=== PATIENT | male | born 1970 | race Caucasian/White ===

== ENCOUNTER 2016-12-13 22:24 | Inpatient (IN) | payer OTHER ==
[~2016-12-13] VITALS: Ht 172.7 cm; Wt 118.5 kg
--- NOTE | ~2016-12-13 | ST ---
[place], [place] EXERCISE STRESS TEST REPORT NAME: KARISSA JOHNSON UNIT #: [id number] ROOM: [facility] DOCTOR: JESSI ROSA MD BIRTHDATE: [birth year] DOS: LEXISCAN STRESS TEST REPORT INDICATIONS: Chest pain, underlying sarcoidosis. PHARMACOLOGICAL STRESS TEST: The patient was given Lexiscan 0.4 mg over 10 seconds followed by nuclear injection at 40 seconds. Test was completed due to completion. The patient also had 2 minutes of recovery time. 1. PERFORMANCE: Baseline heart rate was 66, blood pressure 130/70. Stress at 2 minutes, heart rate was 90, blood pressure 118/74. 2. EKG RESPONSE: Baseline EKG was normal sinus rhythm. Stress EKG, no changes noted. CLINICAL RESPONSE: No shortness of breath, nausea, lightheadedness or dizziness. INTERPRETATION: 1. Negative Lexiscan stress test. 2. Wait for Cardiolite images for full report. JESSI ROSA MD CM:STRESS:EXERCISE STRESS TEST REPORT [id number] JESSI ROSA MD
--- NOTE | ~2016-12-13 | CON ---
[place], [place] REPORT OF CONSULTATION NAME: KARISSA JOHNSON UNIT #: [id number] ROOM: 519 DOCTOR: YUE HOBSONREBECCA BIRTHDATE: [birth year] DOS: 12/15/2016 HISTORY OF PRESENT ILLNESS: A 46-year-old patient who presented with chief complaint of epigastric abdominal pain, subxiphoid pain, on Advil 3 tablets per day. At the time of admission, a panel of blood work has been done, white blood cell was 12, H and H of 16 and 47. Lactic acid was 2.4. Chest x-ray, left lower lobe atelectasis was noted. Comprehensive metabolic panel, BUN and creatinine 23 and 1.7. Liver function test was essentially unremarkable. Troponin normal. Electrolytes balanced. INR 1.4. Troponin was normal. CT scan of the abdomen and pelvis unremarkable. Ultrasound of the abdomen to reassess hepatic steatosis, no other pathology was noticed. Blood cultures are unremarkable. PAST MEDICAL HISTORY: Associated with gastroesophageal reflux, renal lithiasis, sarcoidosis, vertigo, constipation. PAST SURGICAL HISTORY: Cervical radiculopathy, testicular torsion. SOCIAL HISTORY: Nonsmoker, nonalcohol consumer. FAMILY HISTORY: Noncontributory. ALLERGIES: To no known medications. MEDICATIONS AT HOME: Identified aspirin has been included in addition to Advil. REVIEW OF SYSTEMS: HEENT: Denies double vision, blurred vision. RESPIRATORY: Denies shortness of breath. CARDIOVASCULAR: Denies chest pain. DIGESTIVE SYSTEM: Epigastric distress, abdominal pain. PHYSICAL EXAMINATION: VITAL SIGNS: Stable. HEENT: Head normocephalic, nontraumatic. Mouth and buccal mucosa benign. NECK: Supple, no thyromegaly. CHEST: Symmetric anatomy, equal expansion. No wheeze, no rhonchi. Decreased air entry in general. HEART: Normal sinus rhythm, no gallop, no murmur. ABDOMEN: Soft. No hepato-organomegaly. Subxiphoid tenderness. EXTREMITIES: No cyanosis. No pedal edema. NEUROLOGIC: Alert, oriented to time, place, person. IMPRESSION: Epigastric distress, sarcoidosis. Other adjunctive diagnoses as identified above, user of nonsteroidal anti-inflammatory and aspirin. PLAN AND DISCUSSION: We are going to proceed with panendoscopy. [place], [place] REPORT OF CONSULTATION NAME: KARISSA JOHNSON UNIT #: [id number] ROOM: [facility] DOCTOR: YUE HOBSON,REBECCA BIRTHDATE: [birth year] REBECCA TURNER MD CM:CONSTR:REPORT OF CONSULTATION 1714 12/16/16 0119 interface
--- NOTE | ~2016-12-13 | O ---
[place], [place] OPERATIVE NOTE NAME: KARISSA JOHNSON UNIT #: [id number] ROOM: 519 DOCTOR: REBECCA TURNER MD BIRTHDATE: [birth year] DOS: INDICATIONS: A 46-year-old patient who presented with chief complaint of epigastric distress, dyspepsia and abdominal pain. PROCEDURE: Today's procedure part of investigation is panendoscopy plus biopsy. PREMEDICATION: Versed and Diprivan. SCOPE: Olympus forward-viewing gastroscope Q10 video. REPORT: After putting the patient in the left lateral position and after application of lubricant to the scope, the scope was introduced. Thereafter, under direct visualization, I advanced through the length of the esophagus without difficulty. A small hiatal hernia was noticed. Gastritis was seen. Duodenum expresses multi duodenal ulcers, biopsies obtained. The patient was gradually extubated, tolerated the procedure well. IMPRESSION: Multi duodenal ulcers, gastritis, hiatal hernia. PLAN AND DISCUSSION: Supportive management, Protonix 40 mg daily, avoiding 6 Advils that he is taking daily, supportive follow up otherwise. CT scan have been reviewed. Labs and records have been reviewed. H and H has been stable. Thank you very much indeed. Sincerely, REBECCA TURNER MD CM:OPRECORD:OPERATIVE NOTE 1710 [id number] REBECCA TURNER MD 12/15/16 1933 interface
[2016-12-13 22:24] VITALS: BP 107/74
[~2016-12-13 22:24] MED LIST: A-CILLIN500 MG PO; ALLOPURINOL1 POW; ALLOPURINOL100 MG PO; ALLOPURINOL300 MG PO; AMOXICILLIN250 M1 PO; AMOXICILLIN500 M2 PO; AMOXICILLIN500 MG PO; ANAPROX DS550 MG PO; ASPIRIN81 M1 PO; BACTRIM DS 8001 TA1 PO; CHERATUSSIN A3840 ML PO; CLARITIN10 MG PO; CLEOCIN150 MG PO; COLACE100 MG PO; COLCHICINE0.5 MG PO; COLSALIDE IMPR0.6 MG PO; COMPAZINE10 MG PO; CYCLOBENZAPRINE10 MG PO; FLEXERIL10 MG PO; FLOMAX0.4 MG PO; FLONASE ALLERG9.9 ML NAS; FLUTICASON0.05 MG/AC NAS; GOOD SENSE ASPI81 M1 PO; HYDROCODONE BIT1 T11 PO; IBU800 MG PO; IBUPROFEN600 MG PO; INDOCIN50 MG PO; KEFLEX500 MG PO; LEVOFLOXACIN500 MG PO; MEDROL DOSEPAK4 MG PO; MIRALAX POWDER17 G1 PO; MONTELUKAST SOD10 MG PO; MOTRIN600 MG PO; MOTRIN800 MG; MOTRIN800 MG PO; NAPROSYN500 MG PO; NEURONTIN100 MG PO; NEURONTIN600 MG PO; NKHM; NORCO 325 MG-51 TAB PO; PERCOCET 325 MG1 TA6 PO; PERIDEX 480 ML480 ML PO; PREDNISONE10 MG PO; PREDNISONE20 M1 PO; PRILOSEC20 M1 PO; PRILOSEC20 MG PO; PROAIR HFA0.09 MG/AC INH; ROBAXIN500 MG PO; ROBITUSSIN AC 110 ML PO; ROBITUSSIN DM120 ML PO; SEPTRA DS 800 M1 TAB PO; TESSALON PERLE100 MG PO; TESSALON PERLE200 MG PO; ULTRAM50 MG PO; VICODIN 5/500 505 MG; VICODIN 5/500 505 MG PO; VICODIN ES 7501 TAB PO; VOLTAREN50 M1 PO; ZITHROMAX Z PA250 MG PO; ZOFRAN ODT4 MG PO; ZOFRAN ODT4 MG SL; ZOFRAN4 MG PO; ZYLOPRIM100 MG PO; Zofran4 MG PO; [UNRECOGNIZED DRUG - REMARK]; [UNRECOGNIZED DRUG - REMARK] PO
[2016-12-13] MEDS ORDERED: MIRALAX17 GM PO (22:30)
[2016-12-13 22:56] LABS: BASO # 0.1 10*3/uL (0.0-0.1); BASO % 0.6 % (0.0-1.0); EOS # 0.1 10*3/uL (0.0-0.4); EOS % 0.6 % (1.0-4.0); HEMATOCRIT 47.1 % (42.0-52.0); HEMOGLOBIN 16.4 g/dl (14.0-18.0); IG # 0.1 10*3/uL (0.0-0.1); LYMPH # 2.2 10*3/uL (1.3-4.4); LYMPH % 17.2 % (27.0-41.0); MEAN CELL VOLUME 90.2 fl (80.0-94.0); MEAN CORPUSCULAR HGB 31.4 pg (27.0-31.0); MEAN CORPUSCULAR HGB CONC 34.8 g/dl (33.0-37.0); MEAN PLATELET VOLUME 11.5 fl (9.6-12.3); MONO % 7.5 % (3.0-9.0); NEUT # 9.3 10*3/uL (2.3-7.9); NEUT % 73.6 % (47.0-73.0); PLATELET COUNT AUTOMATED 201 10*3/uL (130-400); RED BLOOD COUNT 5.22 10*6/uL (4.50-5.90); RED CELL DISTRI WIDTH 12.5 % (0-14.5); WHITE BLOOD COUNT 12.7 10*3/uL (4.8-10.8)
[2016-12-13 23:06] LABS: PROTHROMBIN TIME 10.6 SECONDS (9.0-12.4)
[2016-12-13 23:14] LABS: ALBUMIN 4.6 gm/dl (3.1-4.5); ALKALINE PHOSPHATASE 70 U/L (45-117); BILIRUBIN, TOTAL 0.5 mg/dl (0.2-1.0); BUN 23 mg/dl (7-24); CARBON DIOXIDE 23 mmol/L (21-32); CHLORIDE 102 mmol/L (98-107); EST GLOM FILT AFRICAN AMERICAN 51 ml/min; GLUCOSE 101 mg/dL (65-99); MAGNESIUM 2.2 mg/dL (1.5-2.1); POTASSIUM 3.8 mmol/L (3.5-5.1); SGOT/AST 40 IU/L (3-35); SGPT/ALT 74 U/L (12-78); SODIUM 141 mmol/L (136-145); TOTAL PROTEIN 8.6 gm/dL (6.4-8.2)
[2016-12-13 23:15] LABS: TROPONIN I < 0.015 ng/ml (<0.045)
[2016-12-13 23:43] VITALS: BP 121/53
[2016-12-14] VITALS (8 sets, daily range): BP systolic 102–130; BP diastolic 52–84
[2016-12-14 00:53] LABS: LA>2 REFLEX 2 HR DRAW NOW
[2016-12-15] VITALS (9 sets, daily range): BP systolic 102–141; BP diastolic 55–93
[2016-12-15 07:54] LABS: BASO # 0.1 10*3/uL (0.0-0.1); BASO % 0.8 % (0.0-1.0); EOS # 0.3 10*3/uL (0.0-0.4); HEMATOCRIT 42.4 % (42.0-52.0); LYMPH % 30.8 % (27.0-41.0); MEAN CORPUSCULAR HGB 30.7 pg (27.0-31.0); MEAN PLATELET VOLUME 12.1 fl (9.6-12.3); MONO # 0.6 10*3/uL (0.1-1.0); MONO % 9.6 % (3.0-9.0); NEUT # 3.5 10*3/uL (2.3-7.9); NEUT % 54.3 % (47.0-73.0); PLATELET COUNT AUTOMATED 157 10*3/uL (130-400); RED BLOOD COUNT 4.56 10*6/uL (4.50-5.90); RED CELL DISTRI WIDTH 12.8 % (0-14.5); WHITE BLOOD COUNT 6.4 10*3/uL (4.8-10.8)
[2016-12-15 08:05] LABS: HEMOGLOBIN A1c 6.5 % (4.8-5.6)
[2016-12-15 08:22] LABS: BUN 15 mg/dl (7-24); CARBON DIOXIDE 25 mmol/L (21-32); CHLORIDE 109 mmol/L (98-107); CHOLESTEROL 148 mg/dL (<200); EST GLOM FILT AFRICAN AMERICAN > 60 ml/min; FREE T4 0.99 ng/dl (0.76-1.46); GLUCOSE 103 mg/dL (65-99); HDL CHOLESTEROL 30 mg/dl (40-60); LDL CHOLESTEROL 82 mg/dL (9-159); PHOSPHOROUS 2.3 mg/dL (2.5-4.9); POTASSIUM 4.2 mmol/L (3.5-5.1); SODIUM 143 mmol/L (136-145); TRIGLYCERIDES 180 mg/dl (<150); VLDL CHOLESTEROL 36 mg/dL (6-40)
[2016-12-15 08:31] LABS: FOLIC ACID 6.45 ng/mL (>5.38); VITAMIN D, 25-HYDROXY 16.5 ng/mL (30-100)
[2016-12-16] VITALS: BP 103/54
[2016-12-16 08:00] VITALS: BP 103/98
[2016-12-16 12:00] VITALS: BP 143/77
[2016-12-16] MEDS ORDERED: GLUCOPHAGE500 MG PO (13:29)
[2016-12-16] MEDS ORDERED: D-1000 185 MG-11 TAB PO (13:29)
[2016-12-16] MEDS ORDERED: PRILOSEC20 M1 PO (13:29)
== END 2016-12-16 14:00 | disposition home or self-care (01) | DRG 383 ==
LOC: ED 22:24 → EDHOLD 12-14 00:10 → 5E 12-14 00:10
PROVIDERS: Emergency Medicine Emergency Medical Services; Internal Medicine; Student in an Organized Health Care Education/Training Program
PROC: 0DB68ZX Excision of Stomach, Via Natural or Artificial Opening Endoscopic, Diagnostic (ICD-10-PCS; principal; 2016-12-15)
PROC: 0DB98ZX Excision of Duodenum, Via Natural or Artificial Opening Endoscopic, Diagnostic (ICD-10-PCS; principal; 2016-12-15)
PROC: 4A02XM4 Measurement of Cardiac Total Activity, External Approach (ICD-10-PCS; principal; 2016-12-15)
DX: K25.9 Gastric ulcer, unspecified as acute or chronic, without hemorrhage or perforation (principal); N17.0 Acute kidney failure with tubular necrosis; R65.10 Systemic inflammatory response syndrome (SIRS) of non-infectious origin without acute organ dysfunction; J98.11 Atelectasis; K26.9 Duodenal ulcer, unspecified as acute or chronic, without hemorrhage or perforation; K76.0 Fatty (change of) liver, not elsewhere classified; R13.10 Dysphagia, unspecified; K29.70 Gastritis, unspecified, without bleeding; K21.9 Gastro-esophageal reflux disease without esophagitis; G47.33 Obstructive sleep apnea (adult) (pediatric); K59.00 Constipation, unspecified; M54.5 Low back pain; E11.9 Type 2 diabetes mellitus without complications; D86.9 Sarcoidosis, unspecified; M1A.9XX0 Chronic gout, unspecified, without tophus (tophi); E55.9 Vitamin D deficiency, unspecified; M54.12 Radiculopathy, cervical region; K44.9 Diaphragmatic hernia without obstruction or gangrene; Z82.49 Family history of ischemic heart disease and other diseases of the circulatory system; Z83.3 Family history of diabetes mellitus; Z87.442 Personal history of urinary calculi; Z83.79 Family history of other diseases of the digestive system; Z79.82 Long term (current) use of aspirin; Z79.899 Other long term (current) drug therapy

== ENCOUNTER 2016-12-19 01:41 | Emergency (ER) | payer OTHER ==
[~2016-12-19] VITALS: Ht 172.7 cm; Wt 122.5 kg
[~2016-12-19 01:41] MED LIST changes: +D-1000 185 MG-11 TAB PO; +GLUCOPHAGE500 MG PO; +MIRALAX17 GM PO
[2016-12-19 01:53] VITALS: BP 119/75
[2016-12-19] MEDS ORDERED: METFORMIN HCL500 MG PO (01:54)
[2016-12-19] MEDS ORDERED: MITIGARE0.6 MG PO (02:27)
== END 2016-12-19 03:43 | disposition home or self-care (01) ==
LOC: ED 01:41
DX: M10.9 Gout, unspecified (principal); K21.9 Gastro-esophageal reflux disease without esophagitis; E11.9 Type 2 diabetes mellitus without complications; Z79.82 Long term (current) use of aspirin; Z79.899 Other long term (current) drug therapy

== ENCOUNTER 2017-01-13 11:16 | Inpatient (IN) | payer OTHER ==
[~2017-01-13] VITALS: Ht 172.7 cm; Wt 123.4 kg
[~2017-01-13 11:16] MED LIST changes: +METFORMIN HCL500 MG PO; +MITIGARE0.6 MG PO
[2017-01-13 11:23] VITALS: BP 120/58
[2017-01-13] MEDS ORDERED: CELEXA20 MG PO (12:07)
[2017-01-13 12:22] LABS: BASO # 0.1 10*3/uL (0.0-0.1); BASO % 0.7 % (0.0-1.0); EOS # 0.2 10*3/uL (0.0-0.4); EOS % 2.1 % (1.0-4.0); HEMATOCRIT 43.5 % (42.0-52.0); HEMOGLOBIN 14.4 g/dl (14.0-18.0); LYMPH # 2.1 10*3/uL (1.3-4.4); LYMPH % 27.2 % (27.0-41.0); MEAN CELL VOLUME 92.4 fl (80.0-94.0); MEAN CORPUSCULAR HGB 30.6 pg (27.0-31.0); MEAN CORPUSCULAR HGB CONC 33.1 g/dl (33.0-37.0); MEAN PLATELET VOLUME 11.4 fl (9.6-12.3); MONO # 0.7 10*3/uL (0.1-1.0); MONO % 8.8 % (3.0-9.0); NEUT # 4.6 10*3/uL (2.3-7.9); NEUT % 60.8 % (47.0-73.0); PLATELET COUNT AUTOMATED 145 10*3/uL (130-400); RED BLOOD COUNT 4.71 10*6/uL (4.50-5.90); RED CELL DISTRI WIDTH 12.9 % (0-14.5); WHITE BLOOD COUNT 7.6 10*3/uL (4.8-10.8)
[2017-01-13 12:41] LABS: ALKALINE PHOSPHATASE 67 U/L (45-117); BILIRUBIN, TOTAL 0.7 mg/dl (0.2-1.0); BUN 17 mg/dl (7-24); CARBON DIOXIDE 29 mmol/L (21-32); CHLORIDE 102 mmol/L (98-107); EST GLOM FILT AFRICAN AMERICAN > 60 ml/min; GLUCOSE 117 mg/dL (65-99); POTASSIUM 4.3 mmol/L (3.5-5.1); SGOT/AST 39 IU/L (3-35); SGPT/ALT 69 U/L (12-78); SODIUM 138 mmol/L (136-145); TOTAL PROTEIN 7.3 gm/dL (6.4-8.2)
[2017-01-13 15:31] VITALS: BP 126/68
[2017-01-13 16:13] VITALS: BP 137/82
[2017-01-13 20:00] VITALS: BP 130/76
[2017-01-14] VITALS: BP 107/86
[2017-01-14 06:47] LABS: BASO % 0.1 % (0.0-1.0); HEMATOCRIT 42.9 % (42.0-52.0); HEMOGLOBIN 14.5 g/dl (14.0-18.0); IG # 0.1 10*3/uL (0.0-0.1); LYMPH # 1.6 10*3/uL (1.3-4.4); LYMPH % 12.8 % (27.0-41.0); MEAN CELL VOLUME 90.7 fl (80.0-94.0); MEAN CORPUSCULAR HGB 30.7 pg (27.0-31.0); MEAN CORPUSCULAR HGB CONC 33.8 g/dl (33.0-37.0); MEAN PLATELET VOLUME 11.7 fl (9.6-12.3); MONO # 0.1 10*3/uL (0.1-1.0); MONO % 1.1 % (3.0-9.0); NEUT # 10.8 10*3/uL (2.3-7.9); NEUT % 85.5 % (47.0-73.0); PLATELET COUNT AUTOMATED 159 10*3/uL (130-400); RED BLOOD COUNT 4.73 10*6/uL (4.50-5.90); RED CELL DISTRI WIDTH 12.7 % (0-14.5); WHITE BLOOD COUNT 12.6 10*3/uL (4.8-10.8)
[2017-01-14 07:09] LABS: HEMOGLOBIN A1c 6.6 % (4.8-5.6)
[2017-01-14 07:17] LABS: BUN 21 mg/dl (7-24); CARBON DIOXIDE 25 mmol/L (21-32); CHLORIDE 104 mmol/L (98-107); CHOLESTEROL 190 mg/dL (<200); EST GLOM FILT AFRICAN AMERICAN > 60 ml/min; GLUCOSE 192 mg/dL (65-99); HDL CHOLESTEROL 37 mg/dl (40-60); LDL CHOLESTEROL 137 mg/dL (9-159); PHOSPHOROUS 2.4 mg/dL (2.5-4.9); POTASSIUM 4.4 mmol/L (3.5-5.1); SODIUM 137 mmol/L (136-145); TRIGLYCERIDES 81 mg/dl (<150); VLDL CHOLESTEROL 16 mg/dL (6-40)
[2017-01-14 07:21] LABS: VITAMIN D, 25-HYDROXY 30.1 ng/mL (30-100)
[2017-01-14 07:22] LABS: FOLIC ACID 5.01 ng/mL (>5.38)
[2017-01-14 07:25] LABS: FREE T4 0.88 ng/dl (0.76-1.46)
[2017-01-14 07:28] LABS: THYROID STIM HORMONE (HS) 0.418 uIU/ml (0.358-4.75)
[2017-01-14 08:00] VITALS: BP 146/61
[2017-01-14 12:00] VITALS: BP 118/74
[2017-01-14] MEDS ORDERED: PREDNISONE10 MG PO (14:10)
[2017-01-14] MEDS ORDERED: ZITHROMAX500 MG PO (14:10)
[2017-01-14] MEDS ORDERED: PHARMASSURE FO0.4 MG PO (14:11)
== END 2017-01-14 14:51 | disposition home or self-care (01) | DRG 191 ==
LOC: ED 11:16 → 4E 15:00 → EDHOLD 15:00 → 4E 15:35
PROVIDERS: Internal Medicine; Registered Nurse
DX: J44.1 Chronic obstructive pulmonary disease with (acute) exacerbation (principal); Z68.41 Body mass index [BMI] 40.0-44.9, adult; E11.65 Type 2 diabetes mellitus with hyperglycemia; E66.01 Morbid (severe) obesity due to excess calories; D86.9 Sarcoidosis, unspecified; I95.1 Orthostatic hypotension; G47.33 Obstructive sleep apnea (adult) (pediatric); K21.9 Gastro-esophageal reflux disease without esophagitis; E55.9 Vitamin D deficiency, unspecified; T56.0X1D Toxic effect of lead and its compounds, accidental (unintentional), subsequent encounter; M1A.10X0 Lead-induced chronic gout, unspecified site, without tophus (tophi); E53.8 Deficiency of other specified B group vitamins; D72.825 Bandemia; E86.0 Dehydration; M54.9 Dorsalgia, unspecified; E83.39 Other disorders of phosphorus metabolism; D72.829 Elevated white blood cell count, unspecified; Z79.899 Other long term (current) drug therapy; Z82.49 Family history of ischemic heart disease and other diseases of the circulatory system; Z83.3 Family history of diabetes mellitus; Z82.3 Family history of stroke; Z86.73 Personal history of transient ischemic attack (TIA), and cerebral infarction without residual deficits; Z87.442 Personal history of urinary calculi

== ENCOUNTER 2017-02-15 00:37 | Emergency (ER) | payer OTHER ==
[~2017-02-15] VITALS: Ht 172.7 cm; Wt 122.5 kg
[~2017-02-15 00:37] MED LIST changes: +CELEXA20 MG PO; +PHARMASSURE FO0.4 MG PO; +ZITHROMAX500 MG PO
[2017-02-15 01:01] VITALS: BP 149/92
[2017-02-15] MEDS ORDERED: Motrin,Rufen800 MG PO (02:49)
== END 2017-02-15 03:50 | disposition home or self-care (01) ==
LOC: ED 00:37
DX: S80.12XA Contusion of left lower leg, initial encounter (principal); J44.9 Chronic obstructive pulmonary disease, unspecified; E11.9 Type 2 diabetes mellitus without complications; K21.9 Gastro-esophageal reflux disease without esophagitis; M10.9 Gout, unspecified; Z79.82 Long term (current) use of aspirin; Z79.899 Other long term (current) drug therapy; Z86.73 Personal history of transient ischemic attack (TIA), and cerebral infarction without residual deficits; W18.39XA Other fall on same level, initial encounter; Y93.89 Activity, other specified; Y92.89 Other specified places as the place of occurrence of the external cause; Y99.8 Other external cause status

== ENCOUNTER 2017-04-06 05:32 | Emergency (ER) | payer OTHER ==
[~2017-04-06] VITALS: Ht 172.7 cm; Wt 122.5 kg
[~2017-04-06 05:32] MED LIST changes: +Motrin,Rufen800 MG PO
[2017-04-06 05:50] VITALS: BP 158/96
[2017-04-06 06:15] LABS: BILIRUBIN NEGATIVE (NEGATIVE); BLOOD NEGATIVE (NEGATIVE); CLARITY CLEAR (CLEAR); COLOR YELLOW (YELLOW); GLUCOSE NEGATIVE (NEGATIVE); KETONE NEGATIVE (NEGATIVE); LEUKO ESTERASE NEGATIVE (NEGATIVE); NITRITE NEGATIVE (NEGATIVE); UROBILINOGEN 0.2 E.U./dl (0.2-1.0)
[2017-04-06 06:25] LABS: BACTERIA TRACE; MUCOUS 1+
[2017-04-06] MEDS ORDERED: Orphenadrine C100 MG PO (06:46)
[2017-04-06] MEDS ORDERED: KETOROLAC10 MG PO (06:46)
[2017-04-06] MEDS ORDERED: PREDNISONE10 MG PO (06:46)
[2017-04-06] MEDS ORDERED: ZITHROMAX250 MG PO (06:49)
== END 2017-04-06 06:54 | disposition home or self-care (01) ==
LOC: ED 05:32
PROVIDERS: Emergency Medicine Emergency Medical Services
DX: S39.012A Strain of muscle, fascia and tendon of lower back, initial encounter (principal); J44.1 Chronic obstructive pulmonary disease with (acute) exacerbation; K21.9 Gastro-esophageal reflux disease without esophagitis; M10.9 Gout, unspecified; E66.01 Morbid (severe) obesity due to excess calories; G47.33 Obstructive sleep apnea (adult) (pediatric); D86.9 Sarcoidosis, unspecified; E11.65 Type 2 diabetes mellitus with hyperglycemia; Z86.73 Personal history of transient ischemic attack (TIA), and cerebral infarction without residual deficits; Z87.442 Personal history of urinary calculi; Z98.890 Other specified postprocedural states; Z79.82 Long term (current) use of aspirin; Z79.899 Other long term (current) drug therapy; X58.XXXA Exposure to other specified factors, initial encounter; Y93.89 Activity, other specified; Y92.89 Other specified places as the place of occurrence of the external cause; Y99.9 Unspecified external cause status

== ENCOUNTER 2017-04-22 17:14 | Emergency (ER) | payer OTHER ==
[~2017-04-22] VITALS: Ht 172.7 cm; Wt 121.6 kg
[~2017-04-22 17:14] MED LIST changes: +KETOROLAC10 MG PO; +Orphenadrine C100 MG PO; +ZITHROMAX250 MG PO
[2017-04-22 17:26] VITALS: BP 137/101
[2017-04-22] MEDS ORDERED: KEFLEX500 M1 PO (19:11)
== END 2017-04-22 19:13 | disposition home or self-care (01) ==
LOC: ED 17:14
DX: S51.811A Laceration without foreign body of right forearm, initial encounter (principal); E11.9 Type 2 diabetes mellitus without complications; K21.9 Gastro-esophageal reflux disease without esophagitis; W25.XXXA Contact with sharp glass, initial encounter; Y93.9 Activity, unspecified; Y92.9 Unspecified place or not applicable; Y99.9 Unspecified external cause status

== ENCOUNTER 2017-05-04 15:37 | Emergency (ER) | payer OTHER ==
[~2017-05-04] VITALS: Ht 172.7 cm; Wt 119.7 kg
[~2017-05-04 15:37] MED LIST changes: +KEFLEX500 M1 PO
[2017-05-04 15:45] VITALS: BP 154/82
[2017-05-04] MEDS ORDERED: INDOMETHACIN50 MG PO (15:51)
== END 2017-05-04 16:04 | disposition home or self-care (01) ==
LOC: ED 15:37
DX: M10.9 Gout, unspecified (principal); Z79.82 Long term (current) use of aspirin; Z79.84 Long term (current) use of oral hypoglycemic drugs; Z79.899 Other long term (current) drug therapy

== ENCOUNTER → 2017-05-05 | Outpatient (CLI) | payer OTHER ==
[~2017-05-05] MED LIST changes: +INDOMETHACIN50 MG PO
== END | disposition home or self-care (01) ==
LOC: LAB 16:10
DX: M19.072 Primary osteoarthritis, left ankle and foot (principal)

== ENCOUNTER → 2017-07-20 | Outpatient (CLI) | payer OTHER ==
[2017-07-20 16:32] LABS: BASO # 0.1 10*3/uL (0.0-0.1); BASO % 0.6 % (0.0-1.0); EOS # 0.2 10*3/uL (0.0-0.4); EOS % 2.4 % (1.0-4.0); HEMATOCRIT 45.1 % (42.0-52.0); HEMOGLOBIN 15.3 g/dl (14.0-18.0); LYMPH # 2.3 10*3/uL (1.3-4.4); LYMPH % 26.8 % (27.0-41.0); MEAN CELL VOLUME 89.7 fl (80.0-94.0); MEAN CORPUSCULAR HGB 30.4 pg (27.0-31.0); MEAN CORPUSCULAR HGB CONC 33.9 g/dl (33.0-37.0); MEAN PLATELET VOLUME 11.7 fl (9.6-12.3); MONO # 0.7 10*3/uL (0.1-1.0); MONO % 8.2 % (3.0-9.0); NEUT # 5.3 10*3/uL (2.3-7.9); NEUT % 61.4 % (47.0-73.0); PLATELET COUNT AUTOMATED 173 10*3/uL (130-400); RED BLOOD COUNT 5.03 10*6/uL (4.50-5.90); RED CELL DISTRI WIDTH 12.7 % (0-14.5); WHITE BLOOD COUNT 8.6 10*3/uL (4.8-10.8)
[2017-07-20 17:00] LABS: BUN 21 mg/dl (7-24); CHLORIDE 102 mmol/L (98-107); POTASSIUM 4.2 mmol/L (3.5-5.1); SODIUM 139 mmol/L (136-145); URIC ACID 9.6 mg/dL (3.5-7.2)
== END | disposition home or self-care (01) ==
LOC: LAB 15:51
PROVIDERS: Podiatrist Foot & Ankle Surgery
DX: M10.071 Idiopathic gout, right ankle and foot (principal); M10.9 Gout, unspecified

== ENCOUNTER 2017-08-29 15:09 | Emergency (ER) | payer OTHER ==
[~2017-08-29] VITALS: Ht 172.7 cm; Wt 124.7 kg
--- NOTE | ~2017-08-29 | EKG ---
[place], [place] ELECTROCARDIOGRAM REPORT NAME: KARISSA JOHNSON UNIT #: [id number] ROOM: DOCTOR: JESSI ROSA MD BIRTHDATE: [birth year] DOS: 08/29/2017 TIME: 15:24:56 RATE AND RHYTHM: Normal sinus rhythm at 79 beats per minute. AL interval 180 milliseconds, QRS duration 22 milliseconds, corrected QT interval is 421 milliseconds, QRS axis -6. IMPRESSION: Normal sinus rhythm, borderline EKG. Also, there is isolated T-wave inversion in lead 3, which is not significant, also some T-wave flattening noted in V1, V2, V3. Again, there is no old EKG to compare. I would call it a borderline EKG. JESSI ROSA MD CM:EKGRPT:ELECTROCARDIOGRAM REPORT [id number] JESSI ROSA MD
[2017-08-29 16:06] LABS: BASO # 0.1 10*3/uL (0.0-0.1); BASO % 0.8 % (0.0-1.0); EOS # 0.3 10*3/uL (0.0-0.4); EOS % 2.3 % (1.0-4.0); HEMATOCRIT 43.6 % (42.0-52.0); HEMOGLOBIN 14.4 g/dl (14.0-18.0); LYMPH # 3.6 10*3/uL (1.3-4.4); MEAN CELL VOLUME 92.2 fl (80.0-94.0); MEAN CORPUSCULAR HGB 30.4 pg (27.0-31.0); MEAN PLATELET VOLUME 11.4 fl (9.6-12.3); MONO # 1.1 10*3/uL (0.1-1.0); MONO % 10.2 % (3.0-9.0); NEUT % 54.2 % (47.0-73.0); PLATELET COUNT AUTOMATED 154 10*3/uL (130-400); RED BLOOD COUNT 4.73 10*6/uL (4.50-5.90); RED CELL DISTRI WIDTH 13.2 % (0-14.5); WHITE BLOOD COUNT 11.1 10*3/uL (4.8-10.8)
[2017-08-29 16:16] LABS: INTERNATIONAL NORM RATIO 0.9 (2.0-3.5)
[2017-08-29 16:22] LABS: ALBUMIN 3.8 gm/dl (3.1-4.5); ALKALINE PHOSPHATASE 78 U/L (45-117); BUN 15 mg/dl (7-24); CHLORIDE 99 mmol/L (98-107); CREATININE 1.17 mg/dL (0.70-1.30); POTASSIUM 3.8 mmol/L (3.5-5.1); SGOT/AST 32 IU/L (3-35); SGPT/ALT 69 U/L (12-78); SODIUM 137 mmol/L (136-145); TOTAL PROTEIN 7.8 gm/dL (6.4-8.2)
[2017-08-29 16:26] LABS: TROPONIN I < 0.015 ng/ml (<0.045)
[2017-08-29 16:49] LABS: BILIRUBIN NEGATIVE (NEGATIVE); BLOOD NEGATIVE (NEGATIVE); CLARITY SL CLOUDY (CLEAR); COLOR YELLOW (YELLOW); GLUCOSE NEGATIVE (NEGATIVE); KETONE NEGATIVE (NEGATIVE); LEUKO ESTERASE 1+ (NEGATIVE); NITRITE NEGATIVE (NEGATIVE); SPECIFIC GRAVITY 1.015 (1.005-1.030); UROBILINOGEN 0.2 E.U./dl (0.2-1.0)
[2017-08-29 16:54] LABS: BACTERIA 1+; MUCOUS 1+
[2017-08-29 16:57] LABS: WBC 41-50 wbc/hpf (0-5)
[2017-08-29 21:00] VITALS: BP 110/60
== END 2017-08-29 21:40 | disposition short-term general hospital (02) ==
LOC: ED 15:09
PROVIDERS: Physician Assistant
DX: R29.810 Facial weakness (principal); E11.9 Type 2 diabetes mellitus without complications; I10 Essential (primary) hypertension; Z79.899 Other long term (current) drug therapy; Z79.84 Long term (current) use of oral hypoglycemic drugs; Z79.82 Long term (current) use of aspirin

== ENCOUNTER 2017-11-02 11:42 | Emergency (ER) | payer OTHER ==
[~2017-11-02] VITALS: Ht 165.1 cm; Wt 121.6 kg
--- NOTE | ~2017-11-02 | EKG ---
[place], [place] ELECTROCARDIOGRAM REPORT NAME: KARISSA JOHNSON UNIT #: [id number] ROOM: DOCTOR: JIMENA SCHERER MD BIRTHDATE: [birth year] DOS: 11/02/2017 TIME: 1241 hours IMPRESSION: 1. Normal sinus rhythm at 75 beats per minute. 2. The tracing is normal. 3. No previous tracing is available for comparison. JIMENA SCHERER MD CM:EKGRPT:ELECTROCARDIOGRAM REPORT [id number] JIMENA SCHERER MD
[2017-11-02 12:47] LABS: BASO # 0.1 10*3/uL (0.0-0.1); BASO % 0.8 % (0.0-1.0); EOS # 0.4 10*3/uL (0.0-0.4); HEMATOCRIT 44.2 % (42.0-52.0); HEMOGLOBIN 14.6 g/dl (14.0-18.0); LYMPH % 27.8 % (27.0-41.0); MEAN CELL VOLUME 93.1 fl (80.0-94.0); MEAN CORPUSCULAR HGB 30.7 pg (27.0-31.0); MEAN PLATELET VOLUME 11.5 fl (9.6-12.3); MONO # 0.6 10*3/uL (0.1-1.0); MONO % 8.8 % (3.0-9.0); NEUT % 56.3 % (47.0-73.0); PLATELET COUNT AUTOMATED 160 10*3/uL (130-400); RED BLOOD COUNT 4.75 10*6/uL (4.50-5.90); RED CELL DISTRI WIDTH 13.7 % (0-14.5); WHITE BLOOD COUNT 7.2 10*3/uL (4.8-10.8)
[2017-11-02 12:56] LABS: ACT PARTIAL THROMBO TIME 22.1 SECONDS (20.8-31.5)
[2017-11-02 13:05] LABS: ALBUMIN 3.8 gm/dl (3.1-4.5); ALKALINE PHOSPHATASE 78 U/L (45-117); BUN 21 mg/dl (7-24); CHLORIDE 106 mmol/L (98-107); CREATININE 1.24 mg/dL (0.70-1.30); LIPASE 90 U/L (73-393); SGOT/AST 36 IU/L (3-35); SGPT/ALT 54 U/L (12-78); SODIUM 139 mmol/L (136-145); TOTAL PROTEIN 7.6 gm/dL (6.4-8.2)
[2017-11-02 13:08] LABS: TROPONIN I < 0.015 ng/ml (<0.045)
[2017-11-02 15:50] VITALS: BP 115/68
[2017-11-02] MEDS ORDERED: IBUPROFEN600 MG PO (16:28)
== END 2017-11-02 16:55 | disposition home or self-care (01) ==
LOC: ED 11:42
PROVIDERS: Physician Assistant
DX: M26.602 Left temporomandibular joint disorder, unspecified (principal); Z79.82 Long term (current) use of aspirin; Z79.899 Other long term (current) drug therapy

== ENCOUNTER 2017-11-22 17:01 | Emergency (ER) | payer OTHER ==
[~2017-11-22] VITALS: Wt 120.2 kg
[2017-11-22 18:50] VITALS: BP 122/78
== END 2017-11-22 19:00 | disposition home or self-care (01) ==
LOC: ED 17:01
DX: S81.812A Laceration without foreign body, left lower leg, initial encounter (principal); J44.1 Chronic obstructive pulmonary disease with (acute) exacerbation; E11.65 Type 2 diabetes mellitus with hyperglycemia; E66.01 Morbid (severe) obesity due to excess calories; K21.9 Gastro-esophageal reflux disease without esophagitis; Z79.82 Long term (current) use of aspirin; Z87.442 Personal history of urinary calculi; W25.XXXA Contact with sharp glass, initial encounter; Y93.01 Activity, walking, marching and hiking; Y92.89 Other specified places as the place of occurrence of the external cause; Y99.8 Other external cause status

== ENCOUNTER 2017-11-27 23:49 | Emergency (ER) | payer OTHER ==
[~2017-11-27] VITALS: Ht 167.6 cm; Wt 106.6 kg
[2017-11-27 23:50] VITALS: BP 133/86
[2017-11-28] MEDS ORDERED: SEPTDS PO (00:16)
[2017-11-28] MEDS ORDERED: VIBRAMYCIN100 MG PO (00:16)
== END 2017-11-28 00:23 | disposition home or self-care (01) ==
LOC: ED 23:49
DX: S81.812D Laceration without foreign body, left lower leg, subsequent encounter (principal); L08.9 Local infection of the skin and subcutaneous tissue, unspecified; K21.9 Gastro-esophageal reflux disease without esophagitis; M10.9 Gout, unspecified; E11.65 Type 2 diabetes mellitus with hyperglycemia; G47.33 Obstructive sleep apnea (adult) (pediatric); Z87.442 Personal history of urinary calculi; Z86.73 Personal history of transient ischemic attack (TIA), and cerebral infarction without residual deficits; Z98.890 Other specified postprocedural states; Z79.899 Other long term (current) drug therapy; Z79.82 Long term (current) use of aspirin; X58.XXXD Exposure to other specified factors, subsequent encounter

== ENCOUNTER 2017-12-13 13:59 | Emergency (ER) | payer OTHER ==
[~2017-12-13] VITALS: Ht 172.7 cm; Wt 124.7 kg
[~2017-12-13 13:59] MED LIST changes: +SEPTDS PO; +VIBRAMYCIN100 MG PO
[2017-12-13 15:19] LABS: BASO % 0.5 % (0.0-1.0); EOS # 0.2 10*3/uL (0.0-0.4); EOS % 3.5 % (1.0-4.0); HEMATOCRIT 43.3 % (42.0-52.0); LYMPH % 34.5 % (27.0-41.0); MEAN CELL VOLUME 95.8 fl (80.0-94.0); MEAN CORPUSCULAR HGB CONC 32.3 g/dl (33.0-37.0); MEAN PLATELET VOLUME 11.5 fl (9.6-12.3); MONO # 0.5 10*3/uL (0.1-1.0); MONO % 8.5 % (3.0-9.0); NEUT % 52.5 % (47.0-73.0); PLATELET COUNT AUTOMATED 116 10*3/uL (130-400); RED BLOOD COUNT 4.52 10*6/uL (4.50-5.90); RED CELL DISTRI WIDTH 13.9 % (0-14.5); WHITE BLOOD COUNT 5.8 10*3/uL (4.8-10.8)
[2017-12-13 15:19] LABS: BILIRUBIN NEGATIVE (NEGATIVE); BLOOD NEGATIVE (NEGATIVE); CLARITY CLEAR (CLEAR); COLOR YELLOW (YELLOW); GLUCOSE NEGATIVE (NEGATIVE); KETONE NEGATIVE (NEGATIVE); LEUKO ESTERASE NEGATIVE (NEGATIVE); NITRITE NEGATIVE (NEGATIVE); PH 5.5 (5.0-9.0); SPECIFIC GRAVITY 1.015 (1.005-1.030); UROBILINOGEN 0.2 E.U./dl (0.2-1.0)
[2017-12-13 15:36] LABS: ALBUMIN 3.5 gm/dl (3.1-4.5); ALKALINE PHOSPHATASE 61 U/L (45-117); BUN 14 mg/dl (7-24); CHLORIDE 107 mmol/L (98-107); CREATININE 1.18 mg/dL (0.70-1.30); LIPASE 75 U/L (73-393); POTASSIUM 3.9 mmol/L (3.5-5.1); SGOT/AST 28 IU/L (3-35); SGPT/ALT 61 U/L (12-78); SODIUM 140 mmol/L (136-145); TOTAL PROTEIN 6.8 gm/dL (6.4-8.2)
[2017-12-13 15:39] LABS: BACTERIA TRACE; EPITHELIAL CELLS 0-2; RBC 0-2 rbc/hpf (0-2)
[2017-12-13 17:22] VITALS: BP 122/78
== END 2017-12-13 18:28 | disposition home or self-care (01) ==
LOC: ED 13:59
PROVIDERS: Nurse Practitioner Family
DX: K59.00 Constipation, unspecified (principal); R10.12 Left upper quadrant pain; K21.9 Gastro-esophageal reflux disease without esophagitis; M10.9 Gout, unspecified; E66.01 Morbid (severe) obesity due to excess calories; G47.33 Obstructive sleep apnea (adult) (pediatric); E11.65 Type 2 diabetes mellitus with hyperglycemia; Z86.73 Personal history of transient ischemic attack (TIA), and cerebral infarction without residual deficits; Z79.82 Long term (current) use of aspirin; Z87.442 Personal history of urinary calculi; Z98.890 Other specified postprocedural states; Z79.899 Other long term (current) drug therapy

== ENCOUNTER 2018-02-09 19:54 | Emergency (ER) | payer OTHER ==
[~2018-02-09] VITALS: Wt 81.6 kg
[2018-02-09 19:54] VITALS: BP 144/83
[2018-02-09] MEDS ORDERED: CEPHALEXIN500 M1 PO (21:38)
== END 2018-02-09 23:33 | disposition home or self-care (01) ==
LOC: ED 19:54
DX: S91.011A Laceration without foreign body, right ankle, initial encounter (principal); F17.200 Nicotine dependence, unspecified, uncomplicated; Z98.890 Other specified postprocedural states; Z79.899 Other long term (current) drug therapy; Z79.82 Long term (current) use of aspirin; W22.03XA Walked into furniture, initial encounter; Y93.89 Activity, other specified; Y92.89 Other specified places as the place of occurrence of the external cause; Y99.9 Unspecified external cause status

== ENCOUNTER → 2018-03-10 | Outpatient (CLI) | payer OTHER ==
[~2018-03-10] MED LIST changes: +CEPHALEXIN500 M1 PO; +CYCLOBENZAPRINE5 M3 PO; +PERCOCET 5-3251 EACH PO; +PREDNISONE50 MG PO; +PROZAC40 M1 PO
== END | disposition home or self-care (01) ==
LOC: RAD 11:24
DX: M25.571 Pain in right ankle and joints of right foot (principal)

== ENCOUNTER 2018-04-21 15:29 | Emergency (ER) | payer OTHER ==
[~2018-04-21] VITALS: Ht 172.7 cm; Wt 111.6 kg
[~2018-04-21 15:29] MED LIST changes: -CYCLOBENZAPRINE5 M3 PO; -PROZAC40 M1 PO
[2018-04-21] MEDS ORDERED: PROZAC40 M1 PO (15:32)
[2018-04-21 16:32] LABS: BASO # 0.1 10*3/uL (0.0-0.1); BASO % 0.6 % (0.0-1.0); EOS # 0.2 10*3/uL (0.0-0.4); EOS % 2.2 % (1.0-4.0); HEMATOCRIT 42.1 % (42.0-52.0); HEMOGLOBIN 13.8 g/dl (14.0-18.0); LYMPH # 2.1 10*3/uL (1.3-4.4); LYMPH % 24.7 % (27.0-41.0); MEAN CELL VOLUME 94.2 fl (80.0-94.0); MEAN CORPUSCULAR HGB 30.9 pg (27.0-31.0); MEAN CORPUSCULAR HGB CONC 32.8 g/dl (33.0-37.0); MEAN PLATELET VOLUME 10.8 fl (9.6-12.3); MONO # 0.7 10*3/uL (0.1-1.0); MONO % 7.8 % (3.0-9.0); NEUT # 5.4 10*3/uL (2.3-7.9); NEUT % 64.2 % (47.0-73.0); PLATELET COUNT AUTOMATED 183 10*3/uL (130-400); RED BLOOD COUNT 4.47 10*6/uL (4.50-5.90); WHITE BLOOD COUNT 8.5 10*3/uL (4.8-10.8)
[2018-04-21 16:51] LABS: ALBUMIN 3.5 gm/dl (3.1-4.5); ALKALINE PHOSPHATASE 63 U/L (45-117); BUN 22 mg/dl (7-24); CHLORIDE 105 mmol/L (98-107); CREATININE 1.13 mg/dL (0.70-1.30); LIPASE 130 U/L (73-393); POTASSIUM 4.2 mmol/L (3.5-5.1); SGOT/AST 19 IU/L (3-35); SGPT/ALT 29 U/L (12-78); SODIUM 139 mmol/L (136-145); TOTAL PROTEIN 6.9 gm/dL (6.4-8.2)
[2018-04-21 17:10] VITALS: BP 126/78
[2018-04-21] MEDS ORDERED: ZOFRAN ODT4 MG SL (17:48)
== END 2018-04-21 17:53 | disposition home or self-care (01) ==
LOC: ED 15:29
PROVIDERS: Physician Assistant
DX: K52.9 Noninfective gastroenteritis and colitis, unspecified (principal); Z79.82 Long term (current) use of aspirin; Z79.899 Other long term (current) drug therapy

== ENCOUNTER 2018-04-28 19:08 | Emergency (ER) | payer OTHER ==
[~2018-04-28] VITALS: Ht 172.7 cm; Wt 115.7 kg
[~2018-04-28 19:08] MED LIST changes: +PROZAC40 M1 PO
[2018-04-28] MEDS ORDERED: ANAPROX DS550 MG PO (20:46)
[2018-04-28] MEDS ORDERED: CYCLOBENZAPRINE5 M3 PO (20:46)
[2018-04-28 20:58] VITALS: BP 105/77
== END 2018-04-28 21:00 | disposition home or self-care (01) ==
LOC: ED 19:08
DX: S16.1XXA Strain of muscle, fascia and tendon at neck level, initial encounter (principal); J44.9 Chronic obstructive pulmonary disease, unspecified; E11.9 Type 2 diabetes mellitus without complications; K21.9 Gastro-esophageal reflux disease without esophagitis; E66.01 Morbid (severe) obesity due to excess calories; Z79.899 Other long term (current) drug therapy; Z79.82 Long term (current) use of aspirin; Z79.84 Long term (current) use of oral hypoglycemic drugs; X50.0XXA Overexertion from strenuous movement or load, initial encounter; Y93.89 Activity, other specified; Y92.89 Other specified places as the place of occurrence of the external cause; Y99.8 Other external cause status

== ENCOUNTER 2018-06-03 12:29 | Emergency (ER) | payer OTHER ==
[~2018-06-03] VITALS: Ht 172.7 cm; Wt 90.7 kg
[~2018-06-03 12:29] MED LIST changes: +CYCLOBENZAPRINE5 M3 PO
[2018-06-03 12:30] VITALS: BP 123/72
[2018-06-03 13:02] LABS: BASO % 0.7 % (0.0-1.0); EOS # 0.1 10*3/uL (0.0-0.4); EOS % 2.4 % (1.0-4.0); HEMATOCRIT 45.5 % (42.0-52.0); HEMOGLOBIN 15.3 g/dl (14.0-18.0); LYMPH # 1.8 10*3/uL (1.3-4.4); LYMPH % 32.8 % (27.0-41.0); MEAN CELL VOLUME 92.3 fl (80.0-94.0); MEAN CORPUSCULAR HGB CONC 33.6 g/dl (33.0-37.0); MEAN PLATELET VOLUME 11.5 fl (9.6-12.3); MONO # 0.7 10*3/uL (0.1-1.0); MONO % 12.6 % (3.0-9.0); NEUT # 2.8 10*3/uL (2.3-7.9); NEUT % 51.1 % (47.0-73.0); PLATELET COUNT AUTOMATED 155 10*3/uL (130-400); RED BLOOD COUNT 4.93 10*6/uL (4.50-5.90); RED CELL DISTRI WIDTH 13.5 % (0-14.5); WHITE BLOOD COUNT 5.4 10*3/uL (4.8-10.8)
[2018-06-03 13:19] LABS: ALBUMIN 3.8 gm/dl (3.1-4.5); ALKALINE PHOSPHATASE 65 U/L (45-117); BUN 20 mg/dl (7-24); CHLORIDE 104 mmol/L (98-107); CREATININE 1.18 mg/dL (0.70-1.30); SGOT/AST 18 IU/L (3-35); SGPT/ALT 31 U/L (12-78); SODIUM 139 mmol/L (136-145); TOTAL PROTEIN 7.9 gm/dL (6.4-8.2)
== END 2018-06-03 13:35 | disposition home or self-care (01) ==
LOC: ED 12:29
PROVIDERS: Nurse Practitioner Family
DX: J20.9 Acute bronchitis, unspecified (principal); R03.0 Elevated blood-pressure reading, without diagnosis of hypertension; J44.9 Chronic obstructive pulmonary disease, unspecified; K21.9 Gastro-esophageal reflux disease without esophagitis; E11.9 Type 2 diabetes mellitus without complications; E66.1 Drug-induced obesity; M10.9 Gout, unspecified; Z79.899 Other long term (current) drug therapy; Z86.718 Personal history of other venous thrombosis and embolism; Z79.82 Long term (current) use of aspirin

== ENCOUNTER → 2018-09-15 | Outpatient (CLI) | payer OTHER | END | disposition home or self-care (01) | LOC: WOUNDCARE 03:10 | DX: S61.211A Laceration without foreign body of left index finger without damage to nail, initial encounter (principal); E11.9 Type 2 diabetes mellitus without complications; K21.9 Gastro-esophageal reflux disease without esophagitis; M10.9 Gout, unspecified; G47.33 Obstructive sleep apnea (adult) (pediatric); R91.1 Solitary pulmonary nodule; Z86.73 Personal history of transient ischemic attack (TIA), and cerebral infarction without residual deficits; X58.XXXA Exposure to other specified factors, initial encounter; Y93.89 Activity, other specified; Y92.89 Other specified places as the place of occurrence of the external cause; Y99.8 Other external cause status ==

== ENCOUNTER 2018-10-28 00:31 | Emergency (ER) | payer OTHER ==
[2018-10-28 00:32] VITALS: BP 132/76
[2018-10-28 01:11] LABS: BASO # 0.1 10*3/uL (0.0-0.1); BASO % 0.8 % (0.0-1.0); EOS # 0.3 10*3/uL (0.0-0.4); EOS % 3.3 % (1.0-4.0); HEMATOCRIT 46.4 % (42.0-52.0); HEMOGLOBIN 15.5 g/dl (14.0-18.0); LYMPH # 2.4 10*3/uL (1.3-4.4); LYMPH % 30.3 % (27.0-41.0); MEAN CELL VOLUME 92.4 fl (80.0-94.0); MEAN CORPUSCULAR HGB 30.9 pg (27.0-31.0); MEAN CORPUSCULAR HGB CONC 33.4 g/dl (33.0-37.0); MEAN PLATELET VOLUME 11.3 fl (9.6-12.3); MONO # 0.7 10*3/uL (0.1-1.0); MONO % 9.5 % (3.0-9.0); NEUT # 4.4 10*3/uL (2.3-7.9); NEUT % 55.7 % (47.0-73.0); PLATELET COUNT AUTOMATED 170 10*3/uL (130-400); RED BLOOD COUNT 5.02 10*6/uL (4.50-5.90); RED CELL DISTRI WIDTH 13.2 % (0-14.5); WHITE BLOOD COUNT 7.8 10*3/uL (4.8-10.8)
[2018-10-28 01:23] LABS: BILIRUBIN NEGATIVE (NEGATIVE); BLOOD NEGATIVE (NEGATIVE); CLARITY CLEAR (CLEAR); COLOR YELLOW (YELLOW); GLUCOSE NEGATIVE (NEGATIVE); KETONE NEGATIVE (NEGATIVE); LEUKO ESTERASE NEGATIVE (NEGATIVE); NITRITE NEGATIVE (NEGATIVE); PH 5.5 (5.0-9.0); UROBILINOGEN 0.2 E.U./dl (0.2-1.0)
[2018-10-28 01:28] LABS: ALKALINE PHOSPHATASE 67 U/L (45-117); BUN 17 mg/dl (7-24); CHLORIDE 105 mmol/L (98-107); CREATININE 1.25 mg/dL (0.70-1.30); POTASSIUM 3.8 mmol/L (3.5-5.1); SGOT/AST 20 IU/L (3-35); SGPT/ALT 42 U/L (12-78); SODIUM 140 mmol/L (136-145); TOTAL PROTEIN 7.7 gm/dL (6.4-8.2)
[2018-10-28 01:48] LABS: EPITHELIAL CELLS 0-5; WBC 0-2 wbc/hpf (0-5)
== END 2018-10-28 03:36 | disposition home or self-care (01) ==
LOC: ED 00:31
PROVIDERS: Nurse Practitioner Family
DX: N20.0 Calculus of kidney (principal); R10.32 Left lower quadrant pain; D86.89 Sarcoidosis of other sites; E11.9 Type 2 diabetes mellitus without complications; Z98.890 Other specified postprocedural states; Z79.899 Other long term (current) drug therapy; Z79.82 Long term (current) use of aspirin

== ENCOUNTER 2019-04-29 08:40 | Emergency (ER) | payer OTHER ==
[~2019-04-29] VITALS: Ht 172.7 cm; Wt 120.2 kg
[2019-04-29 08:42] VITALS: BP 130/80
[2019-04-29] MEDS ORDERED: CYCLOBENZAPRINE10 MG PO (09:24)
[2019-04-29] MEDS ORDERED: NORCO 5-325 TA1 EACH PO (09:24)
[2019-04-29] MEDS ORDERED: PREDNISONE50 MG PO (09:24)
== END 2019-04-29 09:36 | disposition home or self-care (01) ==
LOC: ED 08:40
DX: M54.31 Sciatica, right side (principal); M79.604 Pain in right leg; R20.0 Anesthesia of skin; E66.01 Morbid (severe) obesity due to excess calories; M10.9 Gout, unspecified; K21.9 Gastro-esophageal reflux disease without esophagitis; E11.9 Type 2 diabetes mellitus without complications; Z79.899 Other long term (current) drug therapy; Z79.82 Long term (current) use of aspirin; Z86.718 Personal history of other venous thrombosis and embolism

== ENCOUNTER 2019-05-15 15:30 | Emergency (ER) | payer OTHER ==
[~2019-05-15] VITALS: Ht 172.7 cm; Wt 120.2 kg
[~2019-05-15 15:30] MED LIST changes: +NORCO 5-325 TA1 EACH PO
[2019-05-15 16:24] LABS: BASO # 0.1 10*3/uL (0.0-0.1); BASO % 0.8 % (0.0-1.0); EOS # 0.2 10*3/uL (0.0-0.4); EOS % 2.3 % (1.0-4.0); HEMATOCRIT 44.1 % (42.0-52.0); HEMOGLOBIN 14.6 g/dl (14.0-18.0); LYMPH # 2.3 10*3/uL (1.3-4.4); LYMPH % 27.8 % (27.0-41.0); MEAN CELL VOLUME 93.2 fl (80.0-94.0); MEAN CORPUSCULAR HGB 30.9 pg (27.0-31.0); MEAN CORPUSCULAR HGB CONC 33.1 g/dl (33.0-37.0); MEAN PLATELET VOLUME 11.7 fl (9.6-12.3); MONO # 0.8 10*3/uL (0.1-1.0); MONO % 9.5 % (3.0-9.0); NEUT # 4.9 10*3/uL (2.3-7.9); NEUT % 59.4 % (47.0-73.0); PLATELET COUNT AUTOMATED 154 10*3/uL (130-400); RED BLOOD COUNT 4.73 10*6/uL (4.50-5.90); RED CELL DISTRI WIDTH 12.4 % (0-14.5); WHITE BLOOD COUNT 8.2 10*3/uL (4.8-10.8)
[2019-05-15 16:39] LABS: ALBUMIN 3.9 gm/dl (3.1-4.5); ALKALINE PHOSPHATASE 60 U/L (45-117); BUN 18 mg/dl (7-24); CHLORIDE 109 mmol/L (98-107); CREATININE 1.26 mg/dL (0.70-1.30); POTASSIUM 3.9 mmol/L (3.5-5.1); SGOT/AST 26 IU/L (3-35); SGPT/ALT 43 U/L (12-78); SODIUM 142 mmol/L (136-145); TOTAL PROTEIN 7.5 gm/dL (6.4-8.2)
[2019-05-15 18:44] VITALS: BP 124/73
== END 2019-05-15 20:15 | disposition home or self-care (01) ==
LOC: ED 15:30
PROVIDERS: Emergency Medicine
DX: G45.9 Transient cerebral ischemic attack, unspecified (principal); J44.9 Chronic obstructive pulmonary disease, unspecified; E11.9 Type 2 diabetes mellitus without complications; K21.9 Gastro-esophageal reflux disease without esophagitis; E66.01 Morbid (severe) obesity due to excess calories; Z86.73 Personal history of transient ischemic attack (TIA), and cerebral infarction without residual deficits; Z87.442 Personal history of urinary calculi; Z79.899 Other long term (current) drug therapy; Z79.82 Long term (current) use of aspirin

== ENCOUNTER 2019-06-26 14:24 | Emergency (ER) | payer OTHER ==
[~2019-06-26] VITALS: Ht 172.7 cm; Wt 120.2 kg
[2019-06-26 14:26] VITALS: BP 130/74
== END 2019-06-26 15:13 | disposition home or self-care (01) ==
LOC: ED 14:24
DX: T15.92XA Foreign body on external eye, part unspecified, left eye, initial encounter (principal); J44.9 Chronic obstructive pulmonary disease, unspecified; E11.9 Type 2 diabetes mellitus without complications; K21.9 Gastro-esophageal reflux disease without esophagitis; E66.01 Morbid (severe) obesity due to excess calories; Z79.899 Other long term (current) drug therapy; Z79.82 Long term (current) use of aspirin; Z86.73 Personal history of transient ischemic attack (TIA), and cerebral infarction without residual deficits; Z87.442 Personal history of urinary calculi; X58.XXXA Exposure to other specified factors, initial encounter; Y93.89 Activity, other specified; Y92.89 Other specified places as the place of occurrence of the external cause; Y99.8 Other external cause status

== ENCOUNTER 2019-07-29 13:22 | Emergency (ER) | payer OTHER ==
[~2019-07-29] VITALS: Ht 172.7 cm; Wt 117.9 kg
[2019-07-29 13:27] VITALS: BP 117/80
== END 2019-07-29 17:14 | disposition home or self-care (01) ==
LOC: ED 13:22
DX: M79.661 Pain in right lower leg (principal); M25.561 Pain in right knee; J44.9 Chronic obstructive pulmonary disease, unspecified; E11.9 Type 2 diabetes mellitus without complications; K21.9 Gastro-esophageal reflux disease without esophagitis; E66.01 Morbid (severe) obesity due to excess calories; Z79.899 Other long term (current) drug therapy; Z79.82 Long term (current) use of aspirin; Z87.442 Personal history of urinary calculi; Z86.73 Personal history of transient ischemic attack (TIA), and cerebral infarction without residual deficits

== ENCOUNTER 2019-10-03 19:03 | Emergency (ER) | payer OTHER ==
[~2019-10-03] VITALS: Ht 172.7 cm; Wt 120.2 kg
[2019-10-03 19:16] VITALS: BP 134/83
[2019-10-03] MEDS ORDERED: AMOXICILLIN500 M2 PO (19:32)
[2019-10-03] MEDS ORDERED: CLARITIN10 MG PO (19:32)
== END 2019-10-03 19:40 | disposition home or self-care (01) ==
LOC: ED 19:03
DX: J32.9 Chronic sinusitis, unspecified (principal); Z79.899 Other long term (current) drug therapy; Z79.82 Long term (current) use of aspirin

== ENCOUNTER 2019-10-25 09:51 | Emergency (ER) | payer OTHER ==
[~2019-10-25] VITALS: Ht 172.7 cm; Wt 120.2 kg
[2019-10-25 10:44] LABS: BASO # 0.1 10*3/uL (0.0-0.1); BASO % 1.2 % (0.0-1.0); EOS # 0.5 10*3/uL (0.0-0.4); EOS % 7.8 % (1.0-4.0); HEMATOCRIT 44.7 % (42.0-52.0); LYMPH # 1.9 10*3/uL (1.3-4.4); LYMPH % 28.1 % (27.0-41.0); MEAN CELL VOLUME 91.8 fl (80.0-94.0); MEAN CORPUSCULAR HGB 30.4 pg (27.0-31.0); MEAN CORPUSCULAR HGB CONC 33.1 g/dl (33.0-37.0); MEAN PLATELET VOLUME 11.1 fl (9.6-12.3); MONO # 0.7 10*3/uL (0.1-1.0); MONO % 10.1 % (3.0-9.0); NEUT # 3.5 10*3/uL (2.3-7.9); NEUT % 52.5 % (47.0-73.0); PLATELET COUNT AUTOMATED 159 10*3/uL (130-400); RED BLOOD COUNT 4.87 10*6/uL (4.50-5.90); RED CELL DISTRI WIDTH 12.8 % (0-14.5); WHITE BLOOD COUNT 6.7 10*3/uL (4.8-10.8)
[2019-10-25 10:54] LABS: ACT PARTIAL THROMBO TIME 25.2 SECONDS (20.0-32.1)
[2019-10-25 11:02] LABS: ALBUMIN 3.7 gm/dl (3.1-4.5); ALKALINE PHOSPHATASE 61 U/L (45-117); BUN 13 mg/dl (7-24); CHLORIDE 107 mmol/L (98-107); CREATININE 1.23 mg/dL (0.70-1.30); LIPASE 36 U/L (73-393); POTASSIUM 4.1 mmol/L (3.5-5.1); SGOT/AST 27 IU/L (3-35); SGPT/ALT 48 U/L (12-78); SODIUM 142 mmol/L (136-145); TOTAL PROTEIN 7.3 gm/dL (6.4-8.2); URIC ACID 11.5 mg/dL (3.5-7.2)
[2019-10-25 11:06] LABS: TROPONIN I < 0.015 ng/ml (<0.045)
[2019-10-25 13:11] VITALS: BP 125/85
== END 2019-10-25 13:26 | disposition home or self-care (01) ==
LOC: ED 09:51
PROVIDERS: Nurse Practitioner Family
DX: E86.0 Dehydration (principal); M79.672 Pain in left foot; M10.9 Gout, unspecified; E11.9 Type 2 diabetes mellitus without complications; Z79.4 Long term (current) use of insulin; Z79.899 Other long term (current) drug therapy; Z79.84 Long term (current) use of oral hypoglycemic drugs

== ENCOUNTER 2019-11-08 16:28 | Emergency (ER) | payer OTHER ==
[~2019-11-08] VITALS: Ht 177.8 cm; Wt 117.9 kg
[2019-11-08 17:05] LABS: BASO # 0.1 10*3/uL (0.0-0.1); BASO % 0.7 % (0.0-1.0); EOS # 0.3 10*3/uL (0.0-0.4); EOS % 3.3 % (1.0-4.0); HEMATOCRIT 43.3 % (42.0-52.0); LYMPH # 2.5 10*3/uL (1.3-4.4); LYMPH % 31.5 % (27.0-41.0); MEAN CORPUSCULAR HGB 30.7 pg (27.0-31.0); MEAN CORPUSCULAR HGB CONC 33.7 g/dl (33.0-37.0); MEAN PLATELET VOLUME 11.3 fl (9.6-12.3); MONO # 0.6 10*3/uL (0.1-1.0); MONO % 7.4 % (3.0-9.0); NEUT # 4.6 10*3/uL (2.3-7.9); PLATELET COUNT AUTOMATED 166 10*3/uL (130-400); RED BLOOD COUNT 4.76 10*6/uL (4.50-5.90); RED CELL DISTRI WIDTH 12.8 % (0-14.5); WHITE BLOOD COUNT 8.1 10*3/uL (4.8-10.8)
[2019-11-08 17:21] LABS: ACT PARTIAL THROMBO TIME 24.9 SECONDS (20.0-32.1)
[2019-11-08 17:22] LABS: CHLORIDE 107 mmol/L (98-107); POTASSIUM 3.4 mmol/L (3.5-5.1); SODIUM 141 mmol/L (136-145)
[2019-11-08 17:29] LABS: ALKALINE PHOSPHATASE 61 U/L (45-117); BUN 15 mg/dl (7-24); LIPASE 45 U/L (73-393); SGOT/AST 47 IU/L (3-35); SGPT/ALT 69 U/L (12-78); TOTAL PROTEIN 7.6 gm/dL (6.4-8.2)
[2019-11-08 17:38] LABS: TROPONIN I < 0.015 ng/ml (<0.045)
[2019-11-08 21:15] VITALS: BP 130/79
== END 2019-11-08 21:45 | disposition home or self-care (01) ==
LOC: ED 16:28
PROVIDERS: Emergency Medicine
DX: R51 Headache (principal); Z79.899 Other long term (current) drug therapy; Z79.84 Long term (current) use of oral hypoglycemic drugs; Z79.82 Long term (current) use of aspirin

== ENCOUNTER 2019-12-04 01:36 | Emergency (ER) | payer OTHER ==
[~2019-12-04] VITALS: Ht 172.7 cm; Wt 117.9 kg
[2019-12-04 01:42] VITALS: BP 111/64
[2019-12-04 02:25] LABS: BASO # 0.1 10*3/uL (0.0-0.1); BASO % 0.6 % (0.0-1.0); EOS # 0.2 10*3/uL (0.0-0.4); EOS % 2.4 % (1.0-4.0); HEMATOCRIT 41.4 % (42.0-52.0); LYMPH # 2.7 10*3/uL (1.3-4.4); LYMPH % 30.5 % (27.0-41.0); MEAN CORPUSCULAR HGB 30.9 pg (27.0-31.0); MEAN CORPUSCULAR HGB CONC 33.6 g/dl (33.0-37.0); MONO # 0.7 10*3/uL (0.1-1.0); MONO % 8.4 % (3.0-9.0); NEUT # 5.1 10*3/uL (2.3-7.9); NEUT % 57.6 % (47.0-73.0); PLATELET COUNT AUTOMATED 162 10*3/uL (130-400); RED CELL DISTRI WIDTH 12.7 % (0-14.5); WHITE BLOOD COUNT 8.8 10*3/uL (4.8-10.8)
[2019-12-04 02:56] LABS: BUN 18 mg/dl (7-24); CHLORIDE 106 mmol/L (98-107); CREATININE 1.06 mg/dL (0.70-1.30); POTASSIUM 4.1 mmol/L (3.5-5.1); SODIUM 138 mmol/L (136-145)
[2019-12-04 03:03] LABS: URIC ACID 8.1 mg/dL (3.5-7.2)
[2019-12-04] MEDS ORDERED: INDOMETHACIN50 MG PO (04:54)
== END 2019-12-04 04:59 | disposition home or self-care (01) ==
LOC: ED 01:36
PROVIDERS: Emergency Medicine
DX: M10.9 Gout, unspecified (principal); M25.561 Pain in right knee; J44.9 Chronic obstructive pulmonary disease, unspecified; E11.40 Type 2 diabetes mellitus with diabetic neuropathy, unspecified; K21.9 Gastro-esophageal reflux disease without esophagitis; E66.01 Morbid (severe) obesity due to excess calories; Z79.899 Other long term (current) drug therapy; Z79.82 Long term (current) use of aspirin; Z86.73 Personal history of transient ischemic attack (TIA), and cerebral infarction without residual deficits

== ENCOUNTER 2020-02-13 10:52 | Emergency (ER) | payer OTHER ==
[~2020-02-13] VITALS: Ht 172.7 cm; Wt 120.2 kg
[2020-02-13 11:06] VITALS: BP 107/78
[2020-02-13] MEDS ORDERED: ROBAXIN-750750 MG PO (13:58)
[2020-02-13] MEDS ORDERED: NORCO 5-325 TA1 EACH PO (13:58)
== END 2020-02-13 14:02 | disposition home or self-care (01) ==
LOC: ED 10:52
DX: M62.838 Other muscle spasm (principal); Z79.899 Other long term (current) drug therapy; Z79.82 Long term (current) use of aspirin; Z79.84 Long term (current) use of oral hypoglycemic drugs

== ENCOUNTER 2020-02-16 05:54 | Emergency (ER) | payer OTHER ==
[~2020-02-16] VITALS: Ht 172.7 cm; Wt 120.2 kg
[~2020-02-16 05:54] MED LIST changes: +ROBAXIN-750750 MG PO
[2020-02-16 06:32] LABS: BASO # 0.1 10*3/uL (0.0-0.1); BASO % 0.5 % (0.0-1.0); EOS # 0.2 10*3/uL (0.0-0.4); EOS % 2.1 % (1.0-4.0); HEMATOCRIT 45.7 % (42.0-52.0); LYMPH # 2.2 10*3/uL (1.3-4.4); LYMPH % 22.3 % (27.0-41.0); MEAN CORPUSCULAR HGB CONC 32.6 g/dl (33.0-37.0); MEAN PLATELET VOLUME 11.1 fl (9.6-12.3); MONO # 0.8 10*3/uL (0.1-1.0); MONO % 8.3 % (3.0-9.0); NEUT # 6.4 10*3/uL (2.3-7.9); NEUT % 66.5 % (47.0-73.0); PLATELET COUNT AUTOMATED 169 10*3/uL (130-400); RED BLOOD COUNT 4.97 10*6/uL (4.50-5.90); RED CELL DISTRI WIDTH 12.5 % (0-14.5); WHITE BLOOD COUNT 9.6 10*3/uL (4.8-10.8)
[2020-02-16 06:44] LABS: BUN 19 mg/dl (7-24); CHLORIDE 104 mmol/L (98-107); CREATININE 1.21 mg/dL (0.70-1.30); POTASSIUM 4.4 mmol/L (3.5-5.1); SODIUM 138 mmol/L (136-145); URIC ACID 7.6 mg/dL (3.5-7.2)
[2020-02-16 07:27] VITALS: BP 102/62
[2020-02-16] MEDS ORDERED: INDOMETHACIN50 MG PO (08:56)
[2020-02-16 09:32] LABS: BILIRUBIN NEGATIVE (NEGATIVE); CLARITY CLEAR (CLEAR); COLOR YELLOW (YELLOW); GLUCOSE NEGATIVE (NEGATIVE); KETONE NEGATIVE (NEGATIVE)
[2020-02-16 09:33] LABS: BLOOD NEGATIVE (NEGATIVE); LEUKO ESTERASE 1+ (NEGATIVE); NITRITE NEGATIVE (NEGATIVE)
[2020-02-16 09:46] LABS: WBC 16-20 wbc/hpf (0-5)
[2020-02-16 09:47] LABS: BACTERIA 1+
== END 2020-02-16 09:37 | disposition home or self-care (01) ==
LOC: ED 05:54
PROVIDERS: Emergency Medicine
DX: M10.9 Gout, unspecified (principal); M25.461 Effusion, right knee; M79.18 Myalgia, other site; Z79.899 Other long term (current) drug therapy; Z79.82 Long term (current) use of aspirin; Z79.84 Long term (current) use of oral hypoglycemic drugs

== ENCOUNTER 2020-03-07 10:02 | Inpatient (IN) | payer OTHER ==
[~2020-03-07] VITALS: Ht 172.7 cm; Wt 96.2 kg
--- NOTE | 2020-03-07 10:32 | NUR ---
PT DENIES OPEN WOUNDS AT THIS TIME.
[2020-03-07 10:37] VITALS: BP 115/82
[2020-03-07 11:20] LABS: BASO # 0.1 10*3/uL (0.0-0.1); BASO % 0.6 % (0.0-1.0); EOS # 0.1 10*3/uL (0.0-0.4); EOS % 1.3 % (1.0-4.0); HEMATOCRIT 43.2 % (42.0-52.0); LYMPH # 2.1 10*3/uL (1.3-4.4); LYMPH % 25.9 % (27.0-41.0); MEAN CELL VOLUME 90.2 fl (80.0-94.0); MEAN CORPUSCULAR HGB 29.4 pg (27.0-31.0); MEAN CORPUSCULAR HGB CONC 32.6 g/dl (33.0-37.0); MEAN PLATELET VOLUME 11.3 fl (9.6-12.3); MONO # 0.8 10*3/uL (0.1-1.0); MONO % 9.6 % (3.0-9.0); NEUT # 5.2 10*3/uL (2.3-7.9); NEUT % 62.2 % (47.0-73.0); PLATELET COUNT AUTOMATED 176 10*3/uL (130-400); RED BLOOD COUNT 4.79 10*6/uL (4.50-5.90); RED CELL DISTRI WIDTH 12.7 % (0-14.5); WHITE BLOOD COUNT 8.3 10*3/uL (4.8-10.8)
--- NOTE | 2020-03-07 11:33 | NUR ---
NS STARTED. UNABLE TO SCAN BAG.
[2020-03-07 11:38] LABS: ALBUMIN 3.7 gm/dl (3.1-4.5); ALKALINE PHOSPHATASE 69 U/L (45-117); BUN 16 mg/dl (7-24); CHLORIDE 106 mmol/L (98-107); CREATININE 1.09 mg/dL (0.70-1.30); LIPASE 38 U/L (73-393); POTASSIUM 3.9 mmol/L (3.5-5.1); SGOT/AST 12 IU/L (3-35); SGPT/ALT 31 U/L (12-78); SODIUM 139 mmol/L (136-145); TOTAL PROTEIN 7.9 gm/dL (6.4-8.2)
[2020-03-07 11:42] LABS: TROPONIN I < 0.015 ng/ml (<0.045)
--- NOTE | 2020-03-07 11:45 | NUR ---
PHARMACY CONTACTED. WILL FIX NS ORDER SO THAT MEDICATION CAN BE DOCUMENTED.
[2020-03-07 12:05] LABS: BILIRUBIN NEGATIVE; BLOOD NEGATIVE (NEGATIVE); CLARITY CLEAR (CLEAR); COLOR YELLOW (YELLOW); GLUCOSE NEGATIVE; KETONE NEGATIVE; LEUKO ESTERASE NEGATIVE (NEGATIVE); NITRITE NEGATIVE (NEGATIVE); PH 5.5 (4.5-8.0); RBC 0-2 rbc/hpf (0-2); SPECIFIC GRAVITY 1.015 (1.001-1.030); UROBILINOGEN 0.2 E.U./dl (0.0-1.0); WBC 0-2 wbc/hpf (0-5)
[2020-03-07 13:22] VITALS: BP 122/62
--- NOTE | 2020-03-07 15:15 | NUR ---
NORMAL SALINE SLOWED DOWN ON BAG 3 TO A RATE OF 125 ML/HR.
[2020-03-07 17:05] LABS: ABG BASE EXCESS 0.9 mmol/L (-2.0-2.0); ARTERIAL BLOOD GAS PH 7.417 (7.35-7.45)
[2020-03-07 17:35] VITALS: BP 134/94
--- NOTE | 2020-03-07 17:35 | NUR ---
A 50, admitted to , under the services of ANDREWS Leslie DO with a diagnosis of SUSPECTED COVID. Chief complaint is SHORTNESS OF BREATH, WEAKNESS. Patient arrived via stretcher from ER. Monitor applied. Initial assessment completed. Vital signs taken and recorded. ANDREWS LESLIE DO notified of admission to the unit. Orders received. See assessment for past medical history, medications and allergies. Patient and/or family oriented to unit. [facility] visitation policy reviewed. Clothing/patient valuable form completed. BARRY ZAMORA
--- NOTE | 2020-03-07 18:30 | NUR ---
MESSAGE LEFT WITH ID ANSWERING SERVICE REGARDING CONSULT
[2020-03-07] MEDS ORDERED: GLUCOPHAGE1000 MG PO ×2 (19:31→19:32)
--- NOTE | 2020-03-07 19:34 | NUR ---
MED REC UPDATED ACCORDING TO [facility].
[2020-03-07 20:00] VITALS: BP 115/62
--- NOTE | 2020-03-07 23:51 | NUR ---
24 HOUR CHART CHECK COMPLETE.
[2020-03-08] VITALS: BP 118/55
[2020-03-08 08:00] VITALS: BP 115/66
--- NOTE | 2020-03-08 09:15 | NUR ---
MEDICATED WITH [facility] AFTER PHARMACY FINALLY GOT MEDICATIONS TO SHOW UP IN PIXUS SO WE COULD PULL THEM FOR HEADACHE & GREAT TOE PAIN/GOUT
--- NOTE | 2020-03-08 11:24 | NUR ---
PATIENT WASHED UP.. NO C/O HEADACHE - ONLY C/O REMAINS GOUT
[2020-03-08 11:57] VITALS: BP 129/61
--- NOTE | 2020-03-08 12:51 | NUR ---
PATIENT REFUSED DC PICTURES SAYING HE WASN;T TAKING BAND-AID OFF FOR NURSE TO CHECK
--- NOTE | 2020-03-08 13:29 | NUR ---
Discharge instructions reviewed with patient/family. Patient receptive and verbalizes understanding. Follow-up care arranged. Written instructions given to patient/family.Hep Lock discontinued. Site asymptomatic. Pressure applied. Sterile dressing applied. ABUNDIO CARDOZO
--- NOTE | 2020-03-08 13:39 | NUR ---
TAKEN OUT VIA WHEEL CHAIR WITH ALL BELONGINGS
== END 2020-03-08 13:39 | disposition home or self-care (01) | DRG 351 ==
LOC: ED 10:02 → EDHOLD 15:20 → 4E 15:20 → EDHOLD 15:28 → 4E 15:40
PROVIDERS: Internal Medicine; ADMIT Emergency Medicine; ATTEND Emergency Medicine
DX: M10.071 Idiopathic gout, right ankle and foot (principal); E44.0 Moderate protein-calorie malnutrition; K21.9 Gastro-esophageal reflux disease without esophagitis; D86.9 Sarcoidosis, unspecified; E11.65 Type 2 diabetes mellitus with hyperglycemia; E58 Dietary calcium deficiency; E55.9 Vitamin D deficiency, unspecified; G47.33 Obstructive sleep apnea (adult) (pediatric); E66.01 Morbid (severe) obesity due to excess calories; K76.0 Fatty (change of) liver, not elsewhere classified; Z20.828 Contact with and (suspected) exposure to other viral communicable diseases; E53.8 Deficiency of other specified B group vitamins; Z95.5 Presence of coronary angioplasty implant and graft; Z82.49 Family history of ischemic heart disease and other diseases of the circulatory system; Z83.3 Family history of diabetes mellitus; Z86.73 Personal history of transient ischemic attack (TIA), and cerebral infarction without residual deficits; Z68.32 Body mass index [BMI] 32.0-32.9, adult

== ENCOUNTER → 2020-07-03 | Outpatient (CLI) | payer OTHER ==
[~2020-07-03] MED LIST changes: +GLUCOPHAGE1000 MG PO
[2020-07-03 17:26] LABS: BUN 22 mg/dl (7-24); CHLORIDE 104 mmol/L (98-107); CHOLESTEROL 182 mg/dL (<200); CREATININE 1.21 mg/dL (0.70-1.30); FREE T4 0.89 ng/dl (0.76-1.46); HDL CHOLESTEROL 47 mg/dl (40-60); LDL CHOLESTEROL 110 mg/dL (9-159); POTASSIUM 4.3 mmol/L (3.5-5.1); SODIUM 139 mmol/L (136-145); TRIGLYCERIDES 126 mg/dl (<150); URIC ACID 7.9 mg/dL (3.5-7.2); VLDL CHOLESTEROL 25 mg/dL (6-40)
== END | disposition home or self-care (01) ==
LOC: LAB 16:27
PROVIDERS: ATTEND Internal Medicine
DX: M25.461 Effusion, right knee (principal); E11.9 Type 2 diabetes mellitus without complications; R20.2 Paresthesia of skin

== ENCOUNTER → 2020-07-22 | Outpatient (CLI) | payer OTHER ==
[~2020-07-22] MED LIST changes: +ATORVASTATIN CA40 M1 PO; +AVPAK AZITHROM250 M1 PO; +CARVEDILOL3.125 MG PO; +COLCHICINE0.6 M2 PO; +LISINOPRIL5 MG PO; +LYRICA150 M1 PO; +NITROGLYCERIN0.4 MG SL
== END | disposition home or self-care (01) ==
LOC: CARD 07-15 12:00
PROVIDERS: ATTEND Internal Medicine
DX: R06.02 Shortness of breath (principal)

== ENCOUNTER 2020-07-28 07:58 | Inpatient (IN) | payer OTHER ==
[~2020-07-28] VITALS: Ht 172.7 cm; Wt 92.1 kg
[~2020-07-28 07:58] MED LIST changes: -ATORVASTATIN CA40 M1 PO; -AVPAK AZITHROM250 M1 PO; -CARVEDILOL3.125 MG PO; -LISINOPRIL5 MG PO; -NITROGLYCERIN0.4 MG SL
[2020-07-28 08:03] VITALS: BP 120/75
[2020-07-28 08:28] LABS: BASO % 0.4 % (0.0-1.0); EOS # 0.3 10*3/uL (0.0-0.4); EOS % 3.3 % (1.0-4.0); HEMATOCRIT 47.7 % (42.0-52.0); LYMPH # 1.4 10*3/uL (1.3-4.4); LYMPH % 17.6 % (27.0-41.0); MEAN CELL VOLUME 90.5 fl (80.0-94.0); MEAN CORPUSCULAR HGB 29.8 pg (27.0-31.0); MEAN CORPUSCULAR HGB CONC 32.9 g/dl (33.0-37.0); MEAN PLATELET VOLUME 11.1 fl (9.6-12.3); MONO # 0.5 10*3/uL (0.1-1.0); MONO % 6.4 % (3.0-9.0); NEUT # 5.7 10*3/uL (2.3-7.9); PLATELET COUNT AUTOMATED 165 10*3/uL (130-400); RED BLOOD COUNT 5.27 10*6/uL (4.50-5.90); RED CELL DISTRI WIDTH 12.9 % (0-14.5); WHITE BLOOD COUNT 7.9 10*3/uL (4.8-10.8)
[2020-07-28 08:38] LABS: ACT PARTIAL THROMBO TIME 25.9 SECONDS (20.0-32.1); INTERNATIONAL NORM RATIO 0.9 (2.0-3.5)
[2020-07-28 08:45] LABS: ALKALINE PHOSPHATASE 64 U/L (45-117); BUN 22 mg/dl (7-24); CHLORIDE 105 mmol/L (98-107); CREATININE 1.09 mg/dL (0.70-1.30); LIPASE 62 U/L (73-393); SGOT/AST 19 IU/L (3-35); SGPT/ALT 40 U/L (12-78); SODIUM 136 mmol/L (136-145); TOTAL PROTEIN 7.6 gm/dL (6.4-8.2)
[2020-07-28 08:47] LABS: TROPONIN I < 0.015 ng/ml (<0.045)
[2020-07-28 10:08] VITALS: BP 121/80
[2020-07-28 15:47] VITALS: BP 128/78
[2020-07-28 19:29] VITALS: BP 118/81
[2020-07-28 21:00] VITALS: BP 120/78
[2020-07-28 21:15] VITALS: BP 126/81
[2020-07-29] VITALS: BP 118/87
[2020-07-29 07:03] LABS: BASO % 0.7 % (0.0-1.0); EOS # 0.3 10*3/uL (0.0-0.4); HEMATOCRIT 47.6 % (42.0-52.0); LYMPH % 34.7 % (27.0-41.0); MEAN CELL VOLUME 93.5 fl (80.0-94.0); MEAN CORPUSCULAR HGB 30.1 pg (27.0-31.0); MEAN CORPUSCULAR HGB CONC 32.1 g/dl (33.0-37.0); MEAN PLATELET VOLUME 11.6 fl (9.6-12.3); MONO # 0.7 10*3/uL (0.1-1.0); MONO % 11.4 % (3.0-9.0); NEUT # 2.8 10*3/uL (2.3-7.9); NEUT % 47.7 % (47.0-73.0); PLATELET COUNT AUTOMATED 147 10*3/uL (130-400); RED BLOOD COUNT 5.09 10*6/uL (4.50-5.90); RED CELL DISTRI WIDTH 13.1 % (0-14.5); WHITE BLOOD COUNT 5.8 10*3/uL (4.8-10.8)
[2020-07-29 07:34] LABS: ALBUMIN 3.7 gm/dl (3.1-4.5); BUN 20 mg/dl (7-24); CHLORIDE 106 mmol/L (98-107); POTASSIUM 4.6 mmol/L (3.5-5.1); SGOT/AST 17 IU/L (3-35); SODIUM 139 mmol/L (136-145)
[2020-07-29 07:42] LABS: ALKALINE PHOSPHATASE 66 U/L (45-117); CHOLESTEROL 153 mg/dL (<200); CREATININE 1.22 mg/dL (0.70-1.30); HDL CHOLESTEROL 33 mg/dl (40-60); LDL CHOLESTEROL 103 mg/dL (9-159); SGPT/ALT 44 U/L (12-78); TOTAL PROTEIN 7.6 gm/dL (6.4-8.2); TRIGLYCERIDES 85 mg/dl (<150); VLDL CHOLESTEROL 17 mg/dL (6-40)
[2020-07-29 08:00] VITALS: BP 119/76
== END 2020-07-29 09:23 | disposition other institution (70) | DRG 198 ==
LOC: ED 07:58 → EDHOLD 09:44 → 5E 09:44
PROVIDERS: Emergency Medicine; Student in an Organized Health Care Education/Training Program; ADMIT Internal Medicine; ATTEND Internal Medicine
DX: I25.118 Atherosclerotic heart disease of native coronary artery with other forms of angina pectoris (principal); M25.512 Pain in left shoulder; M10.9 Gout, unspecified; K21.9 Gastro-esophageal reflux disease without esophagitis; E66.01 Morbid (severe) obesity due to excess calories; G47.33 Obstructive sleep apnea (adult) (pediatric); D86.9 Sarcoidosis, unspecified; E83.41 Hypermagnesemia; E11.65 Type 2 diabetes mellitus with hyperglycemia; R79.82 Elevated C-reactive protein (CRP); Z95.5 Presence of coronary angioplasty implant and graft; Z86.14 Personal history of Methicillin resistant Staphylococcus aureus infection; Z82.49 Family history of ischemic heart disease and other diseases of the circulatory system; Z83.3 Family history of diabetes mellitus; Z83.79 Family history of other diseases of the digestive system; Z82.3 Family history of stroke; Z83.438 Family history of other disorder of lipoprotein metabolism and other lipidemia; Z86.73 Personal history of transient ischemic attack (TIA), and cerebral infarction without residual deficits; Z68.37 Body mass index [BMI] 37.0-37.9, adult

== ENCOUNTER 2020-09-14 08:57 | Emergency (ER) | payer OTHER ==
[~2020-09-14] VITALS: Wt 117.9 kg
[2020-09-14 09:01] VITALS: BP 114/81
[2020-09-14 09:29] LABS: BASO # 0.1 10*3/uL (0.0-0.1); BASO % 0.8 % (0.0-1.0); EOS # 0.3 10*3/uL (0.0-0.4); EOS % 4.2 % (1.0-4.0); HEMATOCRIT 43.5 % (42.0-52.0); LYMPH # 1.9 10*3/uL (1.3-4.4); LYMPH % 26.6 % (27.0-41.0); MEAN CELL VOLUME 91.8 fl (80.0-94.0); MEAN CORPUSCULAR HGB 30.4 pg (27.0-31.0); MEAN CORPUSCULAR HGB CONC 33.1 g/dl (33.0-37.0); MEAN PLATELET VOLUME 11.2 fl (9.6-12.3); MONO # 0.7 10*3/uL (0.1-1.0); MONO % 9.2 % (3.0-9.0); NEUT # 4.3 10*3/uL (2.3-7.9); NEUT % 58.8 % (47.0-73.0); PLATELET COUNT AUTOMATED 172 10*3/uL (130-400); RED BLOOD COUNT 4.74 10*6/uL (4.50-5.90); RED CELL DISTRI WIDTH 13.1 % (0-14.5); WHITE BLOOD COUNT 7.3 10*3/uL (4.8-10.8)
[2020-09-14 09:45] LABS: BUN 17 mg/dl (7-24); CHLORIDE 108 mmol/L (98-107); CREATININE 1.05 mg/dL (0.70-1.30); POTASSIUM 4.1 mmol/L (3.5-5.1); SODIUM 139 mmol/L (136-145); URIC ACID 9.4 mg/dL (3.5-7.2)
[2020-09-14] MEDS ORDERED: INDOMETHACIN50 MG PO ×2 (09:56→09:57)
== END 2020-09-14 10:03 | disposition home or self-care (01) ==
LOC: ED 08:57
PROVIDERS: Emergency Medicine
DX: M10.072 Idiopathic gout, left ankle and foot (principal); I25.10 Atherosclerotic heart disease of native coronary artery without angina pectoris; E11.42 Type 2 diabetes mellitus with diabetic polyneuropathy; I10 Essential (primary) hypertension; E66.9 Obesity, unspecified; E78.00 Pure hypercholesterolemia, unspecified; K21.9 Gastro-esophageal reflux disease without esophagitis; J45.909 Unspecified asthma, uncomplicated; Z68.35 Body mass index [BMI] 35.0-35.9, adult; Z86.73 Personal history of transient ischemic attack (TIA), and cerebral infarction without residual deficits; Z79.899 Other long term (current) drug therapy; Z79.82 Long term (current) use of aspirin; Z98.890 Other specified postprocedural states; Z95.5 Presence of coronary angioplasty implant and graft; Z87.442 Personal history of urinary calculi; Z86.14 Personal history of Methicillin resistant Staphylococcus aureus infection

== ENCOUNTER 2020-10-05 19:17 | Emergency (ER) | payer OTHER ==
[~2020-10-05] VITALS: Ht 172.7 cm; Wt 117.9 kg
[2020-10-05 19:25] VITALS: BP 125/74
[2020-10-05] MEDS ORDERED: NAPROSYN500 MG PO (19:31)
[2020-10-05] MEDS ORDERED: ROBAXIN-750750 MG PO (19:31)
== END 2020-10-05 19:42 | disposition home or self-care (01) ==
LOC: ED 19:17
DX: S29.012A Strain of muscle and tendon of back wall of thorax, initial encounter (principal); S16.1XXA Strain of muscle, fascia and tendon at neck level, initial encounter; Z79.899 Other long term (current) drug therapy; Z79.82 Long term (current) use of aspirin; Z86.14 Personal history of Methicillin resistant Staphylococcus aureus infection; Z90.79 Acquired absence of other genital organ(s); X58.XXXA Exposure to other specified factors, initial encounter; Y93.89 Activity, other specified; Y92.89 Other specified places as the place of occurrence of the external cause; Y99.8 Other external cause status

== ENCOUNTER 2020-10-14 07:41 | Emergency (ER) | payer OTHER ==
[~2020-10-14] VITALS: Wt 117.9 kg
[2020-10-14 08:21] LABS: BASO # 0.1 10*3/uL (0.0-0.1); BASO % 0.8 % (0.0-1.0); EOS # 0.2 10*3/uL (0.0-0.4); EOS % 2.2 % (1.0-4.0); HEMATOCRIT 43.9 % (42.0-52.0); LYMPH % 26.8 % (27.0-41.0); MEAN CELL VOLUME 91.3 fl (80.0-94.0); MEAN CORPUSCULAR HGB 30.4 pg (27.0-31.0); MEAN CORPUSCULAR HGB CONC 33.3 g/dl (33.0-37.0); MEAN PLATELET VOLUME 11.4 fl (9.6-12.3); MONO # 0.7 10*3/uL (0.1-1.0); MONO % 9.8 % (3.0-9.0); NEUT # 4.4 10*3/uL (2.3-7.9); PLATELET COUNT AUTOMATED 166 10*3/uL (130-400); RED BLOOD COUNT 4.81 10*6/uL (4.50-5.90); RED CELL DISTRI WIDTH 12.9 % (0-14.5); WHITE BLOOD COUNT 7.3 10*3/uL (4.8-10.8)
[2020-10-14] MEDS ORDERED: ATORVASTATIN CA40 M1 PO (08:24)
[2020-10-14] MEDS ORDERED: CARVEDILOL3.125 MG PO (08:24)
[2020-10-14] MEDS ORDERED: LISINOPRIL5 MG PO (08:24)
[2020-10-14] MEDS ORDERED: NITROGLYCERIN0.4 MG SL (08:25)
[2020-10-14 08:33] LABS: BUN 15 mg/dl (7-24); CHLORIDE 108 mmol/L (98-107); CREATININE 1.16 mg/dL (0.70-1.30); POTASSIUM 3.7 mmol/L (3.5-5.1); SODIUM 140 mmol/L (136-145)
[2020-10-14] MEDS ORDERED: AVPAK AZITHROM250 M1 PO (09:36)
[2020-10-14] MEDS ORDERED: TESSALON PERLE100 MG PO (09:36)
[2020-10-14] MEDS ORDERED: PREDNISONE50 MG PO (09:36)
[2020-10-14] MEDS ORDERED: FLONASE ALLERG9.9 ML NAS (09:37)
[2020-10-14 10:30] VITALS: BP 115/71
== END 2020-10-14 10:06 | disposition home or self-care (01) ==
LOC: ED 07:41
PROVIDERS: Internal Medicine
DX: J40 Bronchitis, not specified as acute or chronic (principal); Z79.899 Other long term (current) drug therapy; Z98.890 Other specified postprocedural states

== ENCOUNTER 2020-11-01 11:10 | Emergency (ER) | payer OTHER ==
[~2020-11-01] VITALS: Wt 117.9 kg
[~2020-11-01 11:10] MED LIST changes: +ATORVASTATIN CA40 M1 PO; +AVPAK AZITHROM250 M1 PO; +CARVEDILOL3.125 MG PO; +LISINOPRIL5 MG PO; +NITROGLYCERIN0.4 MG SL
[2020-11-01 11:15] VITALS: BP 137/97
== END 2020-11-01 12:00 | disposition home or self-care (01) ==
LOC: ED 11:10
DX: S93.601A Unspecified sprain of right foot, initial encounter (principal); M10.9 Gout, unspecified; K21.9 Gastro-esophageal reflux disease without esophagitis; I25.10 Atherosclerotic heart disease of native coronary artery without angina pectoris; Z98.890 Other specified postprocedural states; Z95.5 Presence of coronary angioplasty implant and graft; Z86.73 Personal history of transient ischemic attack (TIA), and cerebral infarction without residual deficits; Z79.82 Long term (current) use of aspirin; Z79.899 Other long term (current) drug therapy; X50.1XXA Overexertion from prolonged static or awkward postures, initial encounter; Y93.89 Activity, other specified; Y92.89 Other specified places as the place of occurrence of the external cause; Y99.9 Unspecified external cause status

== ENCOUNTER 2020-12-07 22:11 | Emergency (ER) | payer OTHER ==
[~2020-12-07] VITALS: Ht 172.7 cm; Wt 117.9 kg
[2020-12-07 22:16] VITALS: BP 138/105
[2020-12-07] MEDS ORDERED: PREDNISONE20 M1 PO (22:35)
== END 2020-12-07 22:43 | disposition home or self-care (01) ==
LOC: ED 22:11
DX: M10.9 Gout, unspecified (principal); Z79.899 Other long term (current) drug therapy

== ENCOUNTER 2021-01-01 21:15 | Emergency (ER) | payer OTHER ==
[~2021-01-01] VITALS: Ht 172.7 cm; Wt 117.9 kg
[~2021-01-01 21:15] MED LIST changes: +AMOXICILLIN500 M3 PO; +PLAVIX75 M1 PO; +PROVENTIL HFA6.7 GM INH; +SYMB160 INH; +VITAMIN D3125 MCG PO
[2021-01-01 22:41] LABS: BASO # 0.1 10*3/uL (0.0-0.1); BASO % 0.7 % (0.0-1.0); EOS # 0.2 10*3/uL (0.0-0.4); EOS % 2.2 % (1.0-4.0); HEMATOCRIT 42.4 % (42.0-52.0); LYMPH # 2.1 10*3/uL (1.3-4.4); LYMPH % 20.1 % (27.0-41.0); MEAN CORPUSCULAR HGB 30.2 pg (27.0-31.0); MEAN CORPUSCULAR HGB CONC 32.8 g/dl (33.0-37.0); MEAN PLATELET VOLUME 10.9 fl (9.6-12.3); MONO # 0.9 10*3/uL (0.1-1.0); MONO % 8.9 % (3.0-9.0); NEUT # 6.9 10*3/uL (2.3-7.9); NEUT % 66.7 % (47.0-73.0); PLATELET COUNT AUTOMATED 199 10*3/uL (130-400); RED BLOOD COUNT 4.61 10*6/uL (4.50-5.90); RED CELL DISTRI WIDTH 12.8 % (0-14.5); WHITE BLOOD COUNT 10.4 10*3/uL (4.8-10.8)
[2021-01-01 22:59] LABS: ALBUMIN 3.2 gm/dl (3.1-4.5); ALKALINE PHOSPHATASE 69 U/L (45-117); BUN 18 mg/dl (7-24); CHLORIDE 99 mmol/L (98-107); CREATININE 1.28 mg/dL (0.70-1.30); LIPASE 358 U/L (73-393); POTASSIUM 3.9 mmol/L (3.5-5.1); SGOT/AST 9 IU/L (3-35); SGPT/ALT 26 U/L (12-78); SODIUM 132 mmol/L (136-145); TOTAL PROTEIN 7.6 gm/dL (6.4-8.2)
[2021-01-02] MEDS ORDERED: ZOFRAN4 MG PO (02:11)
[2021-01-02 02:27] VITALS: BP 142/68
== END 2021-01-02 02:36 | disposition home or self-care (01) ==
LOC: ED 21:15
PROVIDERS: Physician Assistant
DX: Z79.899 Other long term (current) drug therapy (principal); Z79.2 Long term (current) use of antibiotics; Z79.82 Long term (current) use of aspirin; Z86.14 Personal history of Methicillin resistant Staphylococcus aureus infection; Z95.5 Presence of coronary angioplasty implant and graft; K85.90 Acute pancreatitis without necrosis or infection, unspecified

== ENCOUNTER → 2021-01-13 | Outpatient (CLI) | payer OTHER ==
[~2021-01-13] MED LIST changes: +ARICEPT5 M1 PO; +DECADRON4 MG PO; +INDOCIN PO; +MUCINEX D ER 61 EACH PO; +VEKLURY100 MG IV; +VITAMIN C500 M4 PO; +XARE20MG PO; +XARELTO1 EACH PO; +ZINC50 M3 PO
== END | disposition home or self-care (01) ==
LOC: CT 01-06 09:00
PROVIDERS: ATTEND Internal Medicine Nephrology
DX: N28.1 Cyst of kidney, acquired (principal)

== ENCOUNTER 2021-02-09 16:46 | Inpatient (IN) | payer OTHER ==
[~2021-02-09] VITALS: Ht 172.7 cm; Wt 117.2 kg
[2021-02-09 15:49] LABS: BASO # 0.1 10*3/uL (0.0-0.1); BASO % 0.7 % (0.0-1.0); EOS # 0.2 10*3/uL (0.0-0.4); EOS % 2.5 % (1.0-4.0); HEMATOCRIT 41.8 % (42.0-52.0); LYMPH # 1.8 10*3/uL (1.3-4.4); LYMPH % 24.9 % (27.0-41.0); MEAN CELL VOLUME 92.9 fl (80.0-94.0); MEAN CORPUSCULAR HGB 30.2 pg (27.0-31.0); MEAN CORPUSCULAR HGB CONC 32.5 g/dl (33.0-37.0); MEAN PLATELET VOLUME 11.4 fl (9.6-12.3); MONO # 0.8 10*3/uL (0.1-1.0); MONO % 11.6 % (3.0-9.0); NEUT # 4.3 10*3/uL (2.3-7.9); NEUT % 59.5 % (47.0-73.0); PLATELET COUNT AUTOMATED 161 10*3/uL (130-400); RED CELL DISTRI WIDTH 12.9 % (0-14.5); WHITE BLOOD COUNT 7.2 10*3/uL (4.8-10.8)
[~2021-02-09 16:46] MED LIST changes: -ARICEPT5 M1 PO; -DECADRON4 MG PO; -INDOCIN PO; -MUCINEX D ER 61 EACH PO; -VEKLURY100 MG IV; -VITAMIN C500 M4 PO; -XARE20MG PO; -XARELTO1 EACH PO; -ZINC50 M3 PO
[2021-02-09 17:34] VITALS: BP 116/99
[2021-02-09 18:49] LABS: BASO # 0.1 10*3/uL (0.0-0.1); BASO % 0.7 % (0.0-1.0); EOS # 0.2 10*3/uL (0.0-0.4); EOS % 2.9 % (1.0-4.0); HEMATOCRIT 41.2 % (42.0-52.0); LYMPH # 1.8 10*3/uL (1.3-4.4); LYMPH % 25.1 % (27.0-41.0); MEAN CELL VOLUME 92.6 fl (80.0-94.0); MEAN CORPUSCULAR HGB 30.6 pg (27.0-31.0); MEAN PLATELET VOLUME 11.4 fl (9.6-12.3); MONO # 0.8 10*3/uL (0.1-1.0); MONO % 11.9 % (3.0-9.0); NEUT # 4.1 10*3/uL (2.3-7.9); NEUT % 58.5 % (47.0-73.0); PLATELET COUNT AUTOMATED 170 10*3/uL (130-400); RED BLOOD COUNT 4.45 10*6/uL (4.50-5.90)
[2021-02-09 19:06] LABS: ALBUMIN 3.8 gm/dl (3.1-4.5); ALKALINE PHOSPHATASE 72 U/L (45-117); BUN 18 mg/dl (7-24); CHLORIDE 105 mmol/L (98-107); CREATININE 0.99 mg/dL (0.70-1.30); POTASSIUM 4.5 mmol/L (3.5-5.1); SGOT/AST 22 IU/L (3-35); SGPT/ALT 46 U/L (12-78); SODIUM 139 mmol/L (136-145); TOTAL PROTEIN 7.6 gm/dL (6.4-8.2)
[2021-02-09 19:57] VITALS: BP 126/98
[2021-02-09 20:00] VITALS: BP 146/88
[2021-02-10] VITALS: BP 133/76
[2021-02-10 05:30] LABS: BUN 18 mg/dl (7-24); CHLORIDE 106 mmol/L (98-107); CREATININE 0.91 mg/dL (0.70-1.30); POTASSIUM 4.1 mmol/L (3.5-5.1); SODIUM 138 mmol/L (136-145)
[2021-02-10 06:07] LABS: BASO # 0.1 10*3/uL (0.0-0.1); BASO % 0.8 % (0.0-1.0); EOS # 0.2 10*3/uL (0.0-0.4); EOS % 3.8 % (1.0-4.0); HEMATOCRIT 40.6 % (42.0-52.0); LYMPH # 1.8 10*3/uL (1.3-4.4); LYMPH % 28.7 % (27.0-41.0); MEAN CELL VOLUME 92.3 fl (80.0-94.0); MEAN CORPUSCULAR HGB CONC 32.5 g/dl (33.0-37.0); MEAN PLATELET VOLUME 11.7 fl (9.6-12.3); MONO # 0.7 10*3/uL (0.1-1.0); MONO % 11.2 % (3.0-9.0); NEUT # 3.4 10*3/uL (2.3-7.9); NEUT % 54.5 % (47.0-73.0); PLATELET COUNT AUTOMATED 158 10*3/uL (130-400); RED CELL DISTRI WIDTH 12.8 % (0-14.5); WHITE BLOOD COUNT 6.2 10*3/uL (4.8-10.8)
[2021-02-10 08:00] VITALS: BP 129/65; BP 129/95
[2021-02-10 12:00] VITALS: BP 130/76
[2021-02-10] MEDS ORDERED: XARELTO1 EACH PO (15:23)
== END 2021-02-10 15:47 | disposition home or self-care (01) | DRG 197 ==
LOC: ED 16:47 → EDHOLD 18:27 → 4E 18:27
PROVIDERS: Internal Medicine; Student in an Organized Health Care Education/Training Program; ADMIT Internal Medicine; ATTEND Internal Medicine
DX: I82.622 Acute embolism and thrombosis of deep veins of left upper extremity (principal); D64.9 Anemia, unspecified; D72.810 Lymphocytopenia; I80.8 Phlebitis and thrombophlebitis of other sites; L03.114 Cellulitis of left upper limb; I25.10 Atherosclerotic heart disease of native coronary artery without angina pectoris; E66.9 Obesity, unspecified; M10.9 Gout, unspecified; G47.33 Obstructive sleep apnea (adult) (pediatric); K21.9 Gastro-esophageal reflux disease without esophagitis; E11.65 Type 2 diabetes mellitus with hyperglycemia; R42 Dizziness and giddiness; Z95.5 Presence of coronary angioplasty implant and graft; Z82.49 Family history of ischemic heart disease and other diseases of the circulatory system; Z83.3 Family history of diabetes mellitus; Z83.438 Family history of other disorder of lipoprotein metabolism and other lipidemia; Z83.79 Family history of other diseases of the digestive system; Z82.3 Family history of stroke; Z82.0 Family history of epilepsy and other diseases of the nervous system; Z86.73 Personal history of transient ischemic attack (TIA), and cerebral infarction without residual deficits; Z87.440 Personal history of urinary (tract) infections; Z79.82 Long term (current) use of aspirin; Z79.899 Other long term (current) drug therapy; Z68.39 Body mass index [BMI] 39.0-39.9, adult

== ENCOUNTER 2021-02-25 08:02 | Emergency (ER) | payer OTHER ==
[~2021-02-25] VITALS: Wt 117.9 kg
[~2021-02-25 08:02] MED LIST changes: +XARELTO1 EACH PO
[2021-02-25 08:10] VITALS: BP 101/88
[2021-02-25 08:43] LABS: BASO # 0.1 10*3/uL (0.0-0.1); BASO % 0.8 % (0.0-1.0); EOS # 0.2 10*3/uL (0.0-0.4); EOS % 2.9 % (1.0-4.0); LYMPH # 1.7 10*3/uL (1.3-4.4); MEAN CELL VOLUME 90.7 fl (80.0-94.0); MEAN CORPUSCULAR HGB 30.2 pg (27.0-31.0); MEAN CORPUSCULAR HGB CONC 33.3 g/dl (33.0-37.0); MEAN PLATELET VOLUME 11.3 fl (9.6-12.3); MONO # 0.9 10*3/uL (0.1-1.0); MONO % 12.2 % (3.0-9.0); NEUT # 4.7 10*3/uL (2.3-7.9); NEUT % 61.6 % (47.0-73.0); PLATELET COUNT AUTOMATED 184 10*3/uL (130-400); RED BLOOD COUNT 4.41 10*6/uL (4.50-5.90); RED CELL DISTRI WIDTH 12.8 % (0-14.5); WHITE BLOOD COUNT 7.6 10*3/uL (4.8-10.8)
[2021-02-25 08:58] LABS: ALBUMIN 3.7 gm/dl (3.1-4.5); ALKALINE PHOSPHATASE 73 U/L (45-117); BUN 11 mg/dl (7-24); CHLORIDE 106 mmol/L (98-107); CREATININE 1.17 mg/dL (0.70-1.30); POTASSIUM 3.8 mmol/L (3.5-5.1); SGOT/AST 25 IU/L (3-35); SGPT/ALT 49 U/L (12-78); SODIUM 137 mmol/L (136-145); TOTAL PROTEIN 7.3 gm/dL (6.4-8.2); URIC ACID 9.1 mg/dL (3.5-7.2)
[2021-02-25] MEDS ORDERED: PERCOCET 5-3251 EACH PO (10:48)
[2021-02-25] MEDS ORDERED: PREDNISONE50 MG PO (10:48)
== END 2021-02-25 10:50 | disposition home or self-care (01) ==
LOC: ED 08:02
PROVIDERS: Emergency Medicine
DX: M10.9 Gout, unspecified (principal); Z79.899 Other long term (current) drug therapy; Z79.82 Long term (current) use of aspirin

== ENCOUNTER 2021-02-28 21:52 | Emergency (ER) | payer OTHER ==
[~2021-02-28] VITALS: Ht 172.7 cm; Wt 117.0 kg
[2021-02-28 23:25] LABS: BASO % 0.5 % (0.0-1.0); EOS % 0.2 % (1.0-4.0); HEMATOCRIT 39.9 % (42.0-52.0); LYMPH # 0.9 10*3/uL (1.3-4.4); LYMPH % 14.8 % (27.0-41.0); MEAN CELL VOLUME 91.5 fl (80.0-94.0); MEAN CORPUSCULAR HGB CONC 32.8 g/dl (33.0-37.0); MEAN PLATELET VOLUME 11.6 fl (9.6-12.3); MONO # 0.7 10*3/uL (0.1-1.0); MONO % 11.2 % (3.0-9.0); NEUT # 4.6 10*3/uL (2.3-7.9); NEUT % 72.4 % (47.0-73.0); PLATELET COUNT AUTOMATED 197 10*3/uL (130-400); RED BLOOD COUNT 4.36 10*6/uL (4.50-5.90); RED CELL DISTRI WIDTH 12.9 % (0-14.5); WHITE BLOOD COUNT 6.4 10*3/uL (4.8-10.8)
[2021-02-28 23:42] LABS: ALBUMIN 3.6 gm/dl (3.1-4.5); ALKALINE PHOSPHATASE 73 U/L (45-117); BUN 14 mg/dl (7-24); CHLORIDE 104 mmol/L (98-107); CREATININE 1.23 mg/dL (0.70-1.30); POTASSIUM 3.8 mmol/L (3.5-5.1); SGOT/AST 22 IU/L (3-35); SGPT/ALT 53 U/L (12-78); SODIUM 136 mmol/L (136-145); TOTAL PROTEIN 7.5 gm/dL (6.4-8.2)
[2021-02-28 23:58] VITALS: BP 117/62
== END 2021-03-01 00:44 | disposition home or self-care (01) ==
LOC: ED 21:52
PROVIDERS: Internal Medicine
DX: U07.1 COVID-19 (principal); R73.9 Hyperglycemia, unspecified; Z79.899 Other long term (current) drug therapy; Z79.82 Long term (current) use of aspirin

== ENCOUNTER 2021-03-04 13:14 | Inpatient (IN) | payer OTHER ==
[~2021-03-04] VITALS: Ht 172.7 cm; Wt 114.8 kg
[2021-03-04 13:20] VITALS: BP 131/85
[2021-03-04 14:23] LABS: BASO % 0.5 % (0.0-1.0); EOS % 0.3 % (1.0-4.0); HEMATOCRIT 44.9 % (42.0-52.0); LYMPH # 1.2 10*3/uL (1.3-4.4); MEAN CELL VOLUME 90.2 fl (80.0-94.0); MEAN CORPUSCULAR HGB 30.5 pg (27.0-31.0); MEAN CORPUSCULAR HGB CONC 33.9 g/dl (33.0-37.0); MEAN PLATELET VOLUME 11.6 fl (9.6-12.3); MONO # 0.6 10*3/uL (0.1-1.0); MONO % 8.8 % (3.0-9.0); NEUT # 4.3 10*3/uL (2.3-7.9); PLATELET COUNT AUTOMATED 158 10*3/uL (130-400); RED BLOOD COUNT 4.98 10*6/uL (4.50-5.90); RED CELL DISTRI WIDTH 12.8 % (0-14.5); WHITE BLOOD COUNT 6.3 10*3/uL (4.8-10.8)
[2021-03-04 14:41] LABS: ALBUMIN 3.4 gm/dl (3.1-4.5); ALKALINE PHOSPHATASE 73 U/L (45-117); BUN 20 mg/dl (7-24); CHLORIDE 100 mmol/L (98-107); CREATININE 1.09 mg/dL (0.70-1.30); LIPASE 78 U/L (73-393); POTASSIUM 3.8 mmol/L (3.5-5.1); SGOT/AST 46 IU/L (3-35); SGPT/ALT 89 U/L (12-78); SODIUM 133 mmol/L (136-145); TOTAL PROTEIN 7.7 gm/dL (6.4-8.2)
[2021-03-04 14:49] LABS: TROPONIN I < 0.015 ng/ml (<0.045)
[2021-03-04 15:30] VITALS: BP 137/80
[2021-03-04 17:26] VITALS: BP 125/57
[2021-03-04 19:17] VITALS: BP 111/66
[2021-03-04 21:10] VITALS: BP 113/79
[2021-03-04] MEDS ORDERED: ZINC50 M3 PO (23:10)
[2021-03-04] MEDS ORDERED: MUCINEX D ER 61 EACH PO (23:10)
[2021-03-04] MEDS ORDERED: VITAMIN C500 M4 PO (23:10)
[2021-03-04] MEDS ORDERED: ARICEPT5 M1 PO (23:11)
[2021-03-04] MEDS ORDERED: INDOCIN PO (23:13)
[2021-03-05] VITALS: BP 114/66
[2021-03-05 06:30] LABS: HEMATOCRIT 45.1 % (42.0-52.0); MEAN CELL VOLUME 90.7 fl (80.0-94.0); MEAN PLATELET VOLUME 11.6 fl (9.6-12.3); PLATELET COUNT AUTOMATED 154 10*3/uL (130-400); RED BLOOD COUNT 4.97 10*6/uL (4.50-5.90); RED CELL DISTRI WIDTH 12.7 % (0-14.5); WHITE BLOOD COUNT 4.1 10*3/uL (4.8-10.8)
[2021-03-05 07:11] LABS: ALBUMIN 3.6 gm/dl (3.1-4.5); ALKALINE PHOSPHATASE 68 U/L (45-117); BUN 21 mg/dl (7-24); CHLORIDE 99 mmol/L (98-107); CREATININE 1.12 mg/dL (0.70-1.30); POTASSIUM 4.2 mmol/L (3.5-5.1); SGOT/AST 30 IU/L (3-35); SGPT/ALT 79 U/L (12-78); SODIUM 133 mmol/L (136-145); TOTAL PROTEIN 7.7 gm/dL (6.4-8.2)
[2021-03-05 07:36] LABS: TOTAL CELLS COUNTED 100 #CELLS
[2021-03-05 07:37] LABS: PLATELET SUFFICIENCY NORMAL (NORMAL)
[2021-03-05 08:00] VITALS: BP 135/94
[2021-03-05 12:00] VITALS: BP 114/71
[2021-03-05] MEDS ORDERED: VIBRAMYCIN100 MG PO (17:25)
[2021-03-05] MEDS ORDERED: PREDNISONE10 MG PO (17:25)
== END 2021-03-05 19:34 | disposition home or self-care (01) | DRG 140 ==
LOC: ED 13:14 → EDHOLD 16:06 → 4E 16:06
PROVIDERS: Emergency Medicine; ADMIT Internal Medicine; ATTEND Internal Medicine
DX: J44.1 Chronic obstructive pulmonary disease with (acute) exacerbation (principal); U07.1 COVID-19; D86.9 Sarcoidosis, unspecified; K21.9 Gastro-esophageal reflux disease without esophagitis; I82.409 Acute embolism and thrombosis of unspecified deep veins of unspecified lower extremity; I25.10 Atherosclerotic heart disease of native coronary artery without angina pectoris; G47.33 Obstructive sleep apnea (adult) (pediatric); M10.9 Gout, unspecified; E55.9 Vitamin D deficiency, unspecified; K76.0 Fatty (change of) liver, not elsewhere classified; E11.9 Type 2 diabetes mellitus without complications; E66.9 Obesity, unspecified; Z95.5 Presence of coronary angioplasty implant and graft; Z86.73 Personal history of transient ischemic attack (TIA), and cerebral infarction without residual deficits; Z82.49 Family history of ischemic heart disease and other diseases of the circulatory system; Z88.8 Allergy status to other drugs, medicaments and biological substances; Z68.37 Body mass index [BMI] 37.0-37.9, adult

== ENCOUNTER 2021-03-07 01:35 | Inpatient (IN) | payer OTHER ==
[~2021-03-07] VITALS: Ht 172.7 cm; Wt 111.3 kg
[~2021-03-07 01:35] MED LIST changes: +ARICEPT5 M1 PO; +INDOCIN PO; +MUCINEX D ER 61 EACH PO; +VITAMIN C500 M4 PO; +ZINC50 M3 PO
[2021-03-07 01:36] VITALS: BP 113/49
[2021-03-07 02:30] VITALS: BP 123/63
[2021-03-07 04:12] LABS: BASO % 0.3 % (0.0-1.0); HEMATOCRIT 43.5 % (42.0-52.0); LYMPH # 1.3 10*3/uL (1.3-4.4); LYMPH % 16.9 % (27.0-41.0); MEAN CORPUSCULAR HGB 29.9 pg (27.0-31.0); MEAN CORPUSCULAR HGB CONC 33.6 g/dl (33.0-37.0); MEAN PLATELET VOLUME 11.6 fl (9.6-12.3); MONO # 0.4 10*3/uL (0.1-1.0); MONO % 5.6 % (3.0-9.0); NEUT % 76.2 % (47.0-73.0); PLATELET COUNT AUTOMATED 115 10*3/uL (130-400); RED BLOOD COUNT 4.89 10*6/uL (4.50-5.90); RED CELL DISTRI WIDTH 12.6 % (0-14.5); WHITE BLOOD COUNT 7.9 10*3/uL (4.8-10.8)
[2021-03-07 04:31] LABS: ALBUMIN 3.4 gm/dl (3.1-4.5); ALKALINE PHOSPHATASE 63 U/L (45-117); BUN 24 mg/dl (7-24); CHLORIDE 98 mmol/L (98-107); CREATININE 1.11 mg/dL (0.70-1.30); POTASSIUM 3.9 mmol/L (3.5-5.1); SGOT/AST 28 IU/L (3-35); SGPT/ALT 62 U/L (12-78); SODIUM 131 mmol/L (136-145); TOTAL PROTEIN 7.5 gm/dL (6.4-8.2)
[2021-03-07 10:39] VITALS: BP 94/52
[2021-03-07 13:20] VITALS: BP 103/56
[2021-03-07 16:00] VITALS: BP 95/57
[2021-03-07 20:00] VITALS: BP 103/61
[2021-03-08] VITALS: BP 106/72
[2021-03-08 06:25] LABS: BASO % 0.3 % (0.0-1.0); HEMATOCRIT 46.1 % (42.0-52.0); LYMPH # 1.9 10*3/uL (1.3-4.4); LYMPH % 29.8 % (27.0-41.0); MEAN CELL VOLUME 89.5 fl (80.0-94.0); MEAN CORPUSCULAR HGB 29.5 pg (27.0-31.0); MONO # 0.6 10*3/uL (0.1-1.0); MONO % 8.6 % (3.0-9.0); NEUT # 3.9 10*3/uL (2.3-7.9); NEUT % 59.9 % (47.0-73.0); PLATELET COUNT AUTOMATED 127 10*3/uL (130-400); RED BLOOD COUNT 5.15 10*6/uL (4.50-5.90); RED CELL DISTRI WIDTH 12.8 % (0-14.5); WHITE BLOOD COUNT 6.5 10*3/uL (4.8-10.8)
[2021-03-08 06:54] LABS: ALBUMIN 3.3 gm/dl (3.1-4.5); BUN 33 mg/dl (7-24); CHLORIDE 99 mmol/L (98-107); CREATININE 1.04 mg/dL (0.70-1.30); POTASSIUM 4.4 mmol/L (3.5-5.1); SGOT/AST 26 IU/L (3-35); SODIUM 134 mmol/L (136-145)
[2021-03-08 06:56] LABS: ALKALINE PHOSPHATASE 59 U/L (45-117); CPK 179 U/L (39-308); LDH 164 U/L (87-241); SGPT/ALT 56 U/L (12-78); TOTAL PROTEIN 7.7 gm/dL (6.4-8.2)
[2021-03-08 08:00] VITALS: BP 108/68
[2021-03-08 12:00] VITALS: BP 123/91
[2021-03-08 16:00] VITALS: BP 121/73
[2021-03-08 20:00] VITALS: BP 131/69
[2021-03-09] VITALS: BP 112/68
[2021-03-09 06:36] LABS: BASO % 0.2 % (0.0-1.0); HEMATOCRIT 44.8 % (42.0-52.0); LYMPH # 1.9 10*3/uL (1.3-4.4); LYMPH % 21.8 % (27.0-41.0); MEAN CELL VOLUME 89.6 fl (80.0-94.0); MEAN CORPUSCULAR HGB CONC 33.5 g/dl (33.0-37.0); MEAN PLATELET VOLUME 12.6 fl (9.6-12.3); MONO # 0.5 10*3/uL (0.1-1.0); MONO % 5.2 % (3.0-9.0); NEUT # 6.2 10*3/uL (2.3-7.9); NEUT % 71.9 % (47.0-73.0); PLATELET COUNT AUTOMATED 135 10*3/uL (130-400); RED CELL DISTRI WIDTH 12.6 % (0-14.5); WHITE BLOOD COUNT 8.6 10*3/uL (4.8-10.8)
[2021-03-09 06:45] LABS: ALBUMIN 3.1 gm/dl (3.1-4.5); BUN 28 mg/dl (7-24); CHLORIDE 101 mmol/L (98-107); CREATININE 0.92 mg/dL (0.70-1.30); LDH 148 U/L (87-241); POTASSIUM 4.6 mmol/L (3.5-5.1); SGOT/AST 19 IU/L (3-35); SGPT/ALT 45 U/L (12-78); SODIUM 134 mmol/L (136-145); TOTAL PROTEIN 7.2 gm/dL (6.4-8.2)
[2021-03-09 06:46] LABS: ALKALINE PHOSPHATASE 56 U/L (45-117); CPK 171 U/L (39-308)
[2021-03-09 08:00] VITALS: BP 136/93
[2021-03-09 12:00] VITALS: BP 140/73
[2021-03-09 16:00] VITALS: BP 140/73
[2021-03-09 20:00] VITALS: BP 120/61
[2021-03-10] VITALS: BP 111/70
[2021-03-10 06:08] LABS: BASO % 0.2 % (0.0-1.0); HEMATOCRIT 43.4 % (42.0-52.0); LYMPH # 1.9 10*3/uL (1.3-4.4); LYMPH % 19.6 % (27.0-41.0); MEAN CELL VOLUME 90.2 fl (80.0-94.0); MEAN CORPUSCULAR HGB 29.9 pg (27.0-31.0); MEAN CORPUSCULAR HGB CONC 33.2 g/dl (33.0-37.0); MEAN PLATELET VOLUME 12.5 fl (9.6-12.3); MONO # 0.5 10*3/uL (0.1-1.0); MONO % 4.9 % (3.0-9.0); NEUT # 7.4 10*3/uL (2.3-7.9); NEUT % 74.5 % (47.0-73.0); PLATELET COUNT AUTOMATED 135 10*3/uL (130-400); RED BLOOD COUNT 4.81 10*6/uL (4.50-5.90); RED CELL DISTRI WIDTH 12.4 % (0-14.5); WHITE BLOOD COUNT 9.9 10*3/uL (4.8-10.8)
[2021-03-10 06:26] LABS: ALBUMIN 2.9 gm/dl (3.1-4.5); BUN 27 mg/dl (7-24); CHLORIDE 100 mmol/L (98-107); CREATININE 0.79 mg/dL (0.70-1.30); POTASSIUM 4.5 mmol/L (3.5-5.1); SGOT/AST 16 IU/L (3-35); SGPT/ALT 40 U/L (12-78); SODIUM 130 mmol/L (136-145)
[2021-03-10 06:29] LABS: ALKALINE PHOSPHATASE 52 U/L (45-117); LDH 140 U/L (87-241); TOTAL PROTEIN 6.8 gm/dL (6.4-8.2)
[2021-03-10 06:34] LABS: CPK 90 U/L (39-308)
[2021-03-10 08:00] VITALS: BP 113/75
[2021-03-10 12:00] VITALS: BP 118/76
[2021-03-10] MEDS ORDERED: XARE20MG PO (14:50)
[2021-03-10] MEDS ORDERED: DECADRON4 MG PO (14:50)
[2021-03-10] MEDS ORDERED: VEKLURY100 MG IV ×2 (15:57→16:30)
== END 2021-03-10 17:08 | disposition home or self-care (01) | DRG 720 ==
LOC: ED 01:35 → EDHOLD 07:38 → 4E 07:38
PROVIDERS: Emergency Medicine; Internal Medicine Critical Care Medicine; ADMIT Internal Medicine; ATTEND Internal Medicine
DX: A41.9 Sepsis, unspecified organism (principal); U07.1 COVID-19; D86.9 Sarcoidosis, unspecified; J44.1 Chronic obstructive pulmonary disease with (acute) exacerbation; J12.82 Pneumonia due to coronavirus disease 2019; E43 Unspecified severe protein-calorie malnutrition; G47.33 Obstructive sleep apnea (adult) (pediatric); M10.9 Gout, unspecified; K21.9 Gastro-esophageal reflux disease without esophagitis; E66.9 Obesity, unspecified; K76.0 Fatty (change of) liver, not elsewhere classified; J98.2 Interstitial emphysema; E87.1 Hypo-osmolality and hyponatremia; J44.0 Chronic obstructive pulmonary disease with (acute) lower respiratory infection; D68.59 Other primary thrombophilia; J96.01 Acute respiratory failure with hypoxia; I25.10 Atherosclerotic heart disease of native coronary artery without angina pectoris; R04.2 Hemoptysis; E11.65 Type 2 diabetes mellitus with hyperglycemia; Z86.718 Personal history of other venous thrombosis and embolism; Z79.01 Long term (current) use of anticoagulants; Z82.49 Family history of ischemic heart disease and other diseases of the circulatory system; Z82.0 Family history of epilepsy and other diseases of the nervous system; Z83.3 Family history of diabetes mellitus; Z79.51 Long term (current) use of inhaled steroids; Z79.82 Long term (current) use of aspirin; Z68.37 Body mass index [BMI] 37.0-37.9, adult

== ENCOUNTER 2021-03-18 17:08 | Emergency (ER) | payer OTHER ==
[~2021-03-18 17:08] MED LIST changes: +DECADRON4 MG PO; +VEKLURY100 MG IV; +XARE20MG PO
== END 2021-03-18 19:00 | disposition left against medical advice (07) ==
LOC: ED 17:08
DX: U07.1 COVID-19 (principal); R04.0 Epistaxis; Z53.21 Procedure and treatment not carried out due to patient leaving prior to being seen by health care provider

== ENCOUNTER 2021-04-10 09:44 | Emergency (ER) | payer OTHER ==
[~2021-04-10] VITALS: Ht 172.7 cm; Wt 108.9 kg
[2021-04-10 09:52] VITALS: BP 122/85
== END 2021-04-10 13:15 | disposition left against medical advice (07) ==
LOC: ED 09:44
DX: M54.59 Other low back pain (principal); Z53.21 Procedure and treatment not carried out due to patient leaving prior to being seen by health care provider; W18.39XA Other fall on same level, initial encounter; Y93.89 Activity, other specified; Y92.89 Other specified places as the place of occurrence of the external cause; Y99.8 Other external cause status

== ENCOUNTER → 2021-04-22 | Outpatient (CLI) | payer OTHER ==
[~2021-04-22] MED LIST changes: +ANTIFUNGAL113 GM T
[2021-04-23 08:08] LABS: HEP B CORE AB, IGM Negative (Negative); HEPATITIS B SURFACE AG Negative (Negative); HEPATITIS C VIRUS ANTIBODY <0.1 s/co (0.0-0.9)
== END | disposition home or self-care (01) ==
LOC: LAB 13:34
PROVIDERS: ATTEND Internal Medicine
DX: Z11.3 Encounter for screening for infections with a predominantly sexual mode of transmission (principal)

== ENCOUNTER 2021-06-05 13:24 | Emergency (ER) | payer OTHER ==
[2021-06-05 14:36] LABS: BASO # 0.1 10*3/uL (0.0-0.1); BASO % 0.8 % (0.0-1.0); EOS # 0.1 10*3/uL (0.0-0.4); EOS % 1.4 % (1.0-4.0); HEMATOCRIT 44.9 % (42.0-52.0); LYMPH # 1.6 10*3/uL (1.3-4.4); LYMPH % 20.7 % (27.0-41.0); MEAN CELL VOLUME 91.8 fl (80.0-94.0); MEAN CORPUSCULAR HGB 30.3 pg (27.0-31.0); MEAN PLATELET VOLUME 11.2 fl (9.6-12.3); MONO # 0.7 10*3/uL (0.1-1.0); NEUT # 5.1 10*3/uL (2.3-7.9); NEUT % 66.8 % (47.0-73.0); PLATELET COUNT AUTOMATED 186 10*3/uL (130-400); RED BLOOD COUNT 4.89 10*6/uL (4.50-5.90); RED CELL DISTRI WIDTH 12.7 % (0-14.5); WHITE BLOOD COUNT 7.7 10*3/uL (4.8-10.8)
[2021-06-05 14:53] LABS: ALBUMIN 3.5 gm/dl (3.1-4.5); ALKALINE PHOSPHATASE 81 U/L (45-117); BUN 15 mg/dl (7-24); CHLORIDE 102 mmol/L (98-107); CREATININE 0.96 mg/dL (0.70-1.30); POTASSIUM 4.6 mmol/L (3.5-5.1); SGOT/AST 25 IU/L (3-35); SGPT/ALT 45 U/L (12-78); SODIUM 134 mmol/L (136-145); TOTAL PROTEIN 7.7 gm/dL (6.4-8.2)
[2021-06-05 17:21] VITALS: BP 141/64
== END 2021-06-05 17:55 | disposition home or self-care (01) ==
LOC: ED 13:24
PROVIDERS: Emergency Medicine
DX: R05.8 Other specified cough (principal); Z20.822 Contact with and (suspected) exposure to COVID-19; I25.10 Atherosclerotic heart disease of native coronary artery without angina pectoris; E11.9 Type 2 diabetes mellitus without complications; K21.9 Gastro-esophageal reflux disease without esophagitis; M10.9 Gout, unspecified; Z79.899 Other long term (current) drug therapy; Z79.82 Long term (current) use of aspirin

== ENCOUNTER → 2021-08-18 | Outpatient (CLI) | payer OTHER | END | disposition home or self-care (01) | LOC: CARD 00:04 | PROVIDERS: ATTEND Internal Medicine | DX: I20.8 Other forms of angina pectoris (principal) ==

== ENCOUNTER 2021-12-26 07:25 | Emergency (ER) | payer OTHER ==
[~2021-12-26 07:25] MED LIST changes: +CLOPIDOGREL75 MG PO; +INDOMETHACIN ER75 M1 PO; +LIPITOR40 MG PO; +LOPRESSOR25 MG PO
[2021-12-26 07:37] VITALS: BP 116/67
[2021-12-26] MEDS ORDERED: AMOXICILLIN500 M3 PO (08:51)
[2021-12-26] MEDS ORDERED: HYDROCODONE-AC1 EAC1 PO (08:51)
== END 2021-12-26 08:54 | disposition home or self-care (01) ==
LOC: ED 07:25
DX: K02.9 Dental caries, unspecified (principal); B02.9 Zoster without complications; E78.5 Hyperlipidemia, unspecified; I10 Essential (primary) hypertension; M10.9 Gout, unspecified; K21.9 Gastro-esophageal reflux disease without esophagitis; E11.9 Type 2 diabetes mellitus without complications; I25.10 Atherosclerotic heart disease of native coronary artery without angina pectoris; Z79.82 Long term (current) use of aspirin; Z79.899 Other long term (current) drug therapy

== ENCOUNTER 2022-02-01 10:28 | Emergency (ER) | payer OTHER ==
[~2022-02-01] VITALS: Ht 172.7 cm; Wt 113.4 kg
[~2022-02-01 10:28] MED LIST changes: +HYDROCODONE-AC1 EAC1 PO
[2022-02-01] MEDS ORDERED: ALLOPURINOL300 MG PO (11:02)
[2022-02-01 11:30] LABS: BASO % 0.3 % (0.0-1.0); EOS # 0.2 10*3/uL (0.0-0.4); EOS % 2.9 % (1.0-4.0); HEMATOCRIT 46.3 % (42.0-52.0); LYMPH # 1.1 10*3/uL (1.3-4.4); LYMPH % 18.2 % (27.0-41.0); MEAN CELL VOLUME 92.6 fl (80.0-94.0); MEAN CORPUSCULAR HGB CONC 32.4 g/dl (33.0-37.0); MEAN PLATELET VOLUME 11.4 fl (9.6-12.3); MONO # 0.5 10*3/uL (0.1-1.0); MONO % 8.8 % (3.0-9.0); NEUT % 69.3 % (47.0-73.0); PLATELET COUNT AUTOMATED 152 10*3/uL (130-400); RED CELL DISTRI WIDTH 13.2 % (0-14.5); WHITE BLOOD COUNT 5.8 10*3/uL (4.8-10.8)
[2022-02-01 11:46] LABS: ALKALINE PHOSPHATASE 62 U/L (45-117); BUN 17 mg/dl (7-24); CHLORIDE 105 mmol/L (98-107); CREATININE 1.23 mg/dL (0.70-1.30); LIPASE 64 U/L (73-393); POTASSIUM 4.2 mmol/L (3.5-5.1); SGOT/AST 25 IU/L (3-35); SGPT/ALT 25 U/L (12-78); SODIUM 136 mmol/L (136-145); TOTAL PROTEIN 7.5 gm/dL (6.4-8.2)
[2022-02-01 16:12] VITALS: BP 100/62
[2022-02-01] MEDS ORDERED: PHENERGAN25 M3 PO (16:27)
== END 2022-02-01 16:49 | disposition home or self-care (01) ==
LOC: ED 10:28
PROVIDERS: Physician Assistant
DX: K52.9 Noninfective gastroenteritis and colitis, unspecified (principal); Z20.822 Contact with and (suspected) exposure to COVID-19; R11.2 Nausea with vomiting, unspecified; F17.200 Nicotine dependence, unspecified, uncomplicated; Z79.899 Other long term (current) drug therapy; Z98.890 Other specified postprocedural states; Z95.5 Presence of coronary angioplasty implant and graft

== ENCOUNTER 2022-04-06 16:10 | Emergency (ER) | payer OTHER ==
[~2022-04-06 16:10] MED LIST changes: +BUSPIRONE HCL10 MG PO; +GABAPENTIN100 M2 PO; +METFORMIN HYD1000 MG PO; +MUCINEX ER600 MG PO; +PHENERGAN25 M3 PO
[2022-04-06 16:16] VITALS: BP 188/100
[2022-04-06] MEDS ORDERED: ERYTHROMYCIN OPH1 GM OPH (18:15)
== END 2022-04-06 19:12 | disposition home or self-care (01) ==
LOC: ED 16:10
DX: T15.81XA Foreign body in other and multiple parts of external eye, right eye, initial encounter (principal); Z98.890 Other specified postprocedural states; Z79.899 Other long term (current) drug therapy; X58.XXXA Exposure to other specified factors, initial encounter; Y93.89 Activity, other specified; Y92.89 Other specified places as the place of occurrence of the external cause; Y99.9 Unspecified external cause status

== ENCOUNTER 2022-06-02 20:02 | Emergency (ER) | payer OTHER ==
[~2022-06-02] VITALS: Ht 172.7 cm; Wt 59.9 kg
[~2022-06-02 20:02] MED LIST changes: +ERYTHROMYCIN OPH1 GM OPH
[2022-06-02] MEDS ORDERED: PLAVIX75 M1 PO (21:08)
[2022-06-02 22:26] LABS: BASO # 0.1 10*3/uL (0.0-0.1); BASO % 0.8 % (0.0-1.0); EOS # 0.2 10*3/uL (0.0-0.4); EOS % 2.1 % (1.0-4.0); HEMATOCRIT 47.6 % (42.0-52.0); LYMPH % 29.5 % (27.0-41.0); MEAN CELL VOLUME 91.2 fl (80.0-94.0); MEAN CORPUSCULAR HGB 30.5 pg (27.0-31.0); MEAN CORPUSCULAR HGB CONC 33.4 g/dl (33.0-37.0); MEAN PLATELET VOLUME 11.2 fl (9.6-12.3); MONO # 0.8 10*3/uL (0.1-1.0); MONO % 8.2 % (3.0-9.0); NEUT % 58.9 % (47.0-73.0); PLATELET COUNT AUTOMATED 209 10*3/uL (130-400); RED BLOOD COUNT 5.22 10*6/uL (4.50-5.90); WHITE BLOOD COUNT 10.1 10*3/uL (4.8-10.8)
[2022-06-02 22:46] LABS: ALKALINE PHOSPHATASE 63 U/L (46-116); BUN 18 mg/dl (9-23); CHLORIDE 103 mmol/L (98-107); CREATININE 1.06 mg/dL (0.70-1.30); POTASSIUM 4.2 mmol/L (3.4-5.1); SGPT/ALT 22 U/L (10-49); SODIUM 136 mmol/L (136-145); TOTAL PROTEIN 7.7 gm/dL (6.0-8.0)
[2022-06-02 22:52] LABS: ACT PARTIAL THROMBO TIME 34.8 SECONDS (20.0-32.1); INTERNATIONAL NORM RATIO 1.2 (2.0-3.5)
[2022-06-03 00:23] VITALS: BP 125/82
[2022-06-03] MEDS ORDERED: ORPHENADRINE C100 M1 PO (01:03)
[2022-06-03] MEDS ORDERED: HYDROCODONE-AC1 EAC1 PO (01:03)
[2022-06-05] MEDS ORDERED: ONDANSETRON4 MG SL (15:22)
== END 2022-06-03 01:08 | disposition home or self-care (01) ==
LOC: ED 20:02
PROVIDERS: Emergency Medicine
DX: R07.9 Chest pain, unspecified (principal); R20.2 Paresthesia of skin; R20.0 Anesthesia of skin; G58.8 Other specified mononeuropathies; M79.602 Pain in left arm; Z79.899 Other long term (current) drug therapy; Z98.890 Other specified postprocedural states

== ENCOUNTER 2022-06-05 10:46 | Emergency (ER) | payer OTHER ==
[~2022-06-05] VITALS: Ht 177.8 cm; Wt 112.5 kg
[~2022-06-05 10:46] MED LIST changes: +ORPHENADRINE C100 M1 PO
[2022-06-05 11:32] LABS: BASO # 0.1 10*3/uL (0.0-0.1); BASO % 0.8 % (0.0-1.0); EOS # 0.2 10*3/uL (0.0-0.4); EOS % 2.9 % (1.0-4.0); HEMATOCRIT 47.9 % (42.0-52.0); LYMPH # 1.9 10*3/uL (1.3-4.4); LYMPH % 24.1 % (27.0-41.0); MEAN CELL VOLUME 93.4 fl (80.0-94.0); MEAN CORPUSCULAR HGB 31.2 pg (27.0-31.0); MEAN CORPUSCULAR HGB CONC 33.4 g/dl (33.0-37.0); MEAN PLATELET VOLUME 10.9 fl (9.6-12.3); MONO # 0.6 10*3/uL (0.1-1.0); MONO % 8.3 % (3.0-9.0); NEUT # 4.9 10*3/uL (2.3-7.9); NEUT % 63.5 % (47.0-73.0); PLATELET COUNT AUTOMATED 171 10*3/uL (130-400); RED BLOOD COUNT 5.13 10*6/uL (4.50-5.90); WHITE BLOOD COUNT 7.7 10*3/uL (4.8-10.8)
[2022-06-05 11:48] LABS: ALKALINE PHOSPHATASE 64 U/L (46-116); CHLORIDE 104 mmol/L (98-107); CREATININE 1.04 mg/dL (0.70-1.30); SGPT/ALT 19 U/L (10-49)
[2022-06-05 11:49] LABS: ACT PARTIAL THROMBO TIME 33.6 SECONDS (20.0-32.1); BUN 12 mg/dl (9-23); INTERNATIONAL NORM RATIO 1.1 (2.0-3.5); LIPASE 26 U/L (12-53); SODIUM 135 mmol/L (136-145); TOTAL PROTEIN 7.5 gm/dL (6.0-8.0)
[2022-06-05 14:25] LABS: BILIRUBIN Negative (Negative); BLOOD Negative (Negative); CLARITY Clear (Clear); COLOR Yellow (Yellow); GLUCOSE Negative (Negative); KETONE Negative (Negative); LEUKO ESTERASE Trace (Negative); NITRITE Negative (Negative); PH 7.5 (4.5-8.0); UROBILINOGEN 0.2 E.U./dl (0.0-1.0)
[2022-06-05] MEDS ORDERED: ONDANSETRON4 MG SL ×2 (15:22)
[2022-06-05 15:42] VITALS: BP 109/72
[2022-06-05 15:55] LABS: BACTERIA TRACE
[2022-06-09] MEDS ORDERED: CLONIDINE HCL0.1 MG PO (14:05)
[2022-06-09] MEDS ORDERED: TRINTELLIX10 MG PO (14:07)
== END 2022-06-05 15:45 | disposition home or self-care (01) ==
LOC: ED 10:46
PROVIDERS: Family Medicine
DX: B34.9 Viral infection, unspecified (principal); K92.0 Hematemesis; Z20.822 Contact with and (suspected) exposure to COVID-19; Z98.890 Other specified postprocedural states; Z79.01 Long term (current) use of anticoagulants

== ENCOUNTER → 2022-06-09 | Outpatient (CLI) | payer OTHER ==
[~2022-06-09] MED LIST changes: +CLONIDINE HCL0.1 MG PO; +ONDANSETRON4 MG SL; +TRINTELLIX10 MG PO
== END | disposition home or self-care (01) ==
LOC: CARD 00:48
PROVIDERS: ATTEND Internal Medicine
DX: R06.02 Shortness of breath (principal)

== ENCOUNTER 2022-11-04 11:06 | Emergency (ER) | payer OTHER ==
[~2022-11-04] VITALS: Wt 108.9 kg
[2022-11-04 11:54] LABS: BASO # 0.1 10*3/uL (0.0-0.1); BASO % 0.7 % (0.0-1.0); EOS # 0.6 10*3/uL (0.0-0.4); EOS % 7.2 % (1.0-4.0); HEMATOCRIT 46.1 % (42.0-52.0); LYMPH # 1.2 10*3/uL (1.3-4.4); LYMPH % 15.7 % (27.0-41.0); MEAN CELL VOLUME 91.7 fl (80.0-94.0); MEAN CORPUSCULAR HGB 30.8 pg (27.0-31.0); MEAN CORPUSCULAR HGB CONC 33.6 g/dl (33.0-37.0); MEAN PLATELET VOLUME 11.4 fl (9.6-12.3); MONO # 0.5 10*3/uL (0.1-1.0); MONO % 6.3 % (3.0-9.0); NEUT # 5.3 10*3/uL (2.3-7.9); NEUT % 69.7 % (47.0-73.0); PLATELET COUNT AUTOMATED 145 10*3/uL (130-400); RED BLOOD COUNT 5.03 10*6/uL (4.50-5.90); RED CELL DISTRI WIDTH 12.8 % (0-14.5); WHITE BLOOD COUNT 7.6 10*3/uL (4.8-10.8)
[2022-11-04 12:16] VITALS: BP 125/41
[2022-11-04 12:16] LABS: ALKALINE PHOSPHATASE 64 U/L (46-116); BUN 10 mg/dl (9-23); CHLORIDE 107 mmol/L (98-107); LIPASE 25 U/L (12-53); POTASSIUM 3.9 mmol/L (3.4-5.1); SGPT/ALT 17 U/L (10-49); TOTAL PROTEIN 7.2 gm/dL (6.0-8.0)
[2022-11-04] MEDS ORDERED: ONDANSETRON4 MG SL (13:27)
[2022-11-04] MEDS ORDERED: DICYCLOMINE HCL10 MG PO (13:27)
== END 2022-11-04 13:30 | disposition home or self-care (01) ==
LOC: ED 11:06
PROVIDERS: Student in an Organized Health Care Education/Training Program
DX: A08.4 Viral intestinal infection, unspecified (principal); Z20.822 Contact with and (suspected) exposure to COVID-19; Z79.899 Other long term (current) drug therapy; Z98.890 Other specified postprocedural states

== ENCOUNTER 2023-02-22 19:11 | Emergency (ER) | payer OTHER ==
[~2023-02-22] VITALS: Ht 172.7 cm; Wt 109.8 kg
[~2023-02-22 19:11] MED LIST changes: +DICYCLOMINE HCL10 MG PO
[2023-02-22] MEDS ORDERED: LYRICA150 M1 PO (19:42)
[2023-02-22 20:15] LABS: BASO % 0.6 % (0.0-1.0); EOS # 0.3 10*3/uL (0.0-0.4); EOS % 3.9 % (1.0-4.0); HEMATOCRIT 42.1 % (42.0-52.0); LYMPH # 1.9 10*3/uL (1.3-4.4); LYMPH % 28.8 % (27.0-41.0); MEAN CELL VOLUME 91.3 fl (80.0-94.0); MEAN CORPUSCULAR HGB 30.8 pg (27.0-31.0); MEAN CORPUSCULAR HGB CONC 33.7 g/dl (33.0-37.0); MEAN PLATELET VOLUME 11.1 fl (9.6-12.3); MONO # 0.6 10*3/uL (0.1-1.0); MONO % 8.2 % (3.0-9.0); NEUT # 3.9 10*3/uL (2.3-7.9); NEUT % 58.1 % (47.0-73.0); PLATELET COUNT AUTOMATED 179 10*3/uL (130-400); RED BLOOD COUNT 4.61 10*6/uL (4.50-5.90); RED CELL DISTRI WIDTH 13.2 % (0-14.5); WHITE BLOOD COUNT 6.7 10*3/uL (4.8-10.8)
[2023-02-22 20:26] LABS: ACT PARTIAL THROMBO TIME 25.9 SECONDS (20.0-32.1)
[2023-02-22 20:32] LABS: ALKALINE PHOSPHATASE 57 U/L (46-116); BUN 13 mg/dl (9-23); CHLORIDE 106 mmol/L (98-107); LIPASE 27 U/L (12-53); POTASSIUM 3.8 mmol/L (3.4-5.1); SGPT/ALT 31 U/L (10-49); TOTAL PROTEIN 7.1 gm/dL (6.0-8.0)
[2023-02-22 21:34] VITALS: BP 107/74
== END 2023-02-22 22:08 | disposition home or self-care (01) ==
LOC: ED 19:11
PROVIDERS: Internal Medicine
DX: M25.512 Pain in left shoulder (principal); J45.909 Unspecified asthma, uncomplicated; K21.9 Gastro-esophageal reflux disease without esophagitis; M10.9 Gout, unspecified; Z87.442 Personal history of urinary calculi; E78.00 Pure hypercholesterolemia, unspecified; F41.9 Anxiety disorder, unspecified; E11.9 Type 2 diabetes mellitus without complications; Z98.890 Other specified postprocedural states; Z86.718 Personal history of other venous thrombosis and embolism

== ENCOUNTER 2023-02-26 10:50 | Emergency (ER) | payer OTHER ==
[~2023-02-26] VITALS: Ht 172.7 cm; Wt 109.8 kg
[2023-02-26 11:07] VITALS: BP 115/76
[2023-02-26] MEDS ORDERED: CEPHALEXIN500 M1 PO (12:15)
[2023-02-26] MEDS ORDERED: MELOXICAM15 MG PO (12:15)
[2023-02-26] MEDS ORDERED: PREDNISONE20 M1 PO (12:15)
== END 2023-02-26 18:56 | disposition home or self-care (01) ==
LOC: ED 10:50
DX: M10.9 Gout, unspecified (principal); L03.116 Cellulitis of left lower limb; E11.21 Type 2 diabetes mellitus with diabetic nephropathy; J45.909 Unspecified asthma, uncomplicated; K21.9 Gastro-esophageal reflux disease without esophagitis; E78.00 Pure hypercholesterolemia, unspecified; Z87.442 Personal history of urinary calculi; Z98.890 Other specified postprocedural states; Z86.73 Personal history of transient ischemic attack (TIA), and cerebral infarction without residual deficits

== ENCOUNTER 2023-05-26 19:52 | Emergency (ER) | payer OTHER ==
[~2023-05-26] VITALS: Ht 172.7 cm; Wt 76.2 kg
[~2023-05-26 19:52] MED LIST changes: +MELOXICAM15 MG PO
[2023-05-26 20:08] VITALS: BP 153/76
[2023-05-26] MEDS ORDERED: SEPTDS PO (21:12)
== END 2023-05-26 21:23 | disposition home or self-care (01) ==
LOC: ED 19:52
DX: L02.512 Cutaneous abscess of left hand (principal); Z79.2 Long term (current) use of antibiotics; Z79.899 Other long term (current) drug therapy; Z98.890 Other specified postprocedural states; Z95.5 Presence of coronary angioplasty implant and graft

== ENCOUNTER → 2023-06-10 | Outpatient (CLI) | payer OTHER ==
[2023-06-10 15:31] LABS: BUN 18 mg/dl (9-23); CHLORIDE 106 mmol/L (98-107); POTASSIUM 4.6 mmol/L (3.4-5.1)
== END | disposition home or self-care (01) ==
LOC: LAB 14:54
PROVIDERS: ATTEND Internal Medicine
DX: U07.1 COVID-19 (principal)

== ENCOUNTER 2023-07-11 12:44 | Observation (INO) | payer OTHER ==
[~2023-07-11] VITALS: Ht 172.7 cm; Wt 117.5 kg
[2023-07-11 12:59] VITALS: BP 135/83
[2023-07-11 13:38] LABS: BASO # 0.1 10*3/uL (0.0-0.1); BASO % 0.7 % (0.0-1.0); EOS # 0.2 10*3/uL (0.0-0.4); EOS % 2.9 % (1.0-4.0); HEMATOCRIT 44.5 % (42.0-52.0); LYMPH # 1.9 10*3/uL (1.3-4.4); LYMPH % 26.1 % (27.0-41.0); MEAN CELL VOLUME 95.9 fl (80.0-94.0); MEAN CORPUSCULAR HGB CONC 32.4 g/dl (33.0-37.0); MEAN PLATELET VOLUME 11.2 fl (9.6-12.3); MONO # 0.6 10*3/uL (0.1-1.0); MONO % 8.3 % (3.0-9.0); NEUT # 4.5 10*3/uL (2.3-7.9); NEUT % 61.7 % (47.0-73.0); PLATELET COUNT AUTOMATED 172 10*3/uL (130-400); RED BLOOD COUNT 4.64 10*6/uL (4.50-5.90); RED CELL DISTRI WIDTH 13.3 % (0-14.5); WHITE BLOOD COUNT 7.2 10*3/uL (4.8-10.8)
[2023-07-11 13:50] LABS: ACT PARTIAL THROMBO TIME 25.1 SECONDS (20.0-32.1)
[2023-07-11 14:01] LABS: ALKALINE PHOSPHATASE 65 U/L (46-116); BUN 12 mg/dl (9-23); CHLORIDE 107 mmol/L (98-107); LIPASE 25 U/L (12-53); POTASSIUM 4.1 mmol/L (3.4-5.1); SGPT/ALT 27 U/L (5-49); TOTAL PROTEIN 7.1 gm/dL (6.0-8.0)
[2023-07-11] MEDS ORDERED: BREYNA 80-4.510.3 GM INH (15:32)
[2023-07-11] MEDS ORDERED: ATORVASTATIN CA40 M1 PO (15:33)
[2023-07-11] MEDS ORDERED: LANTUS SOL100 UNIT/1 SC (15:35)
[2023-07-11] MEDS ORDERED: ACTOS30 M1 PO (15:36)
[2023-07-11] MEDS ORDERED: DULOXETINE HCL30 MG PO (15:37)
[2023-07-11] MEDS ORDERED: TRULICITY1.5 MG/0.5 SC (15:38)
[2023-07-11] MEDS ORDERED: ASPIRIN CHILDRE81 MG PO (15:39)
[2023-07-11] MEDS ORDERED: XARE20MG PO (15:40)
[2023-07-11] MEDS ORDERED: 'CLONIDINE0.1 MG PO (15:41)
[2023-07-11 15:54] VITALS: BP 129/80
[2023-07-11 17:08] VITALS: BP 110/60
[2023-07-11 20:11] VITALS: BP 128/73
[2023-07-12 06:17] VITALS: BP 136/70
[2023-07-12 10:15] VITALS: BP 140/89
[2023-07-12] MEDS ORDERED: FAMOTIDINE40 MG PO (14:32)
[2023-07-12] MEDS ORDERED: LOPRESSOR25 MG PO (14:32)
== END 2023-07-12 14:49 | disposition home or self-care (01) ==
LOC: ED 12:44 → EDHOLD 14:30
PROVIDERS: Emergency Medicine; ADMIT Internal Medicine; ATTEND Internal Medicine
DX: R07.89 Other chest pain (principal); K21.9 Gastro-esophageal reflux disease without esophagitis; D86.9 Sarcoidosis, unspecified; G47.33 Obstructive sleep apnea (adult) (pediatric); K76.0 Fatty (change of) liver, not elsewhere classified; E11.9 Type 2 diabetes mellitus without complications; I10 Essential (primary) hypertension; E78.5 Hyperlipidemia, unspecified; I25.10 Atherosclerotic heart disease of native coronary artery without angina pectoris; M10.9 Gout, unspecified; G62.9 Polyneuropathy, unspecified; R06.02 Shortness of breath; Z95.5 Presence of coronary angioplasty implant and graft; Z98.890 Other specified postprocedural states; Z79.899 Other long term (current) drug therapy

== ENCOUNTER → 2023-07-22 | Outpatient (CLI) | payer OTHER ==
[~2023-07-22] MED LIST changes: +'CLONIDINE0.1 MG PO; +ACTOS30 M1 PO; +ASPIRIN CHILDRE81 MG PO; +BREYNA 80-4.510.3 GM INH; +DULOXETINE HCL30 MG PO; +FAMOTIDINE40 MG PO; +LANTUS SOL100 UNIT/1 SC; +TRULICITY1.5 MG/0.5 SC
== END | disposition home or self-care (01) ==
LOC: CARD 00:17
PROVIDERS: ATTEND Internal Medicine Cardiovascular Disease
DX: I25.10 Atherosclerotic heart disease of native coronary artery without angina pectoris (principal); R07.2 Precordial pain

== ENCOUNTER 2023-09-29 01:21 | Emergency (ER) | payer OTHER ==
[~2023-09-29] VITALS: Wt 120.2 kg
[2023-09-29 01:28] VITALS: BP 136/59
[2023-09-29] MEDS ORDERED: ACETAMINOPHEN 325 MG TAB PO ONE (01:35)
== END 2023-09-29 02:55 | disposition home or self-care (01) ==
LOC: ED 01:21
DX: S63.277A Dislocation of unspecified interphalangeal joint of left little finger, initial encounter (principal); E11.9 Type 2 diabetes mellitus without complications; Z86.73 Personal history of transient ischemic attack (TIA), and cerebral infarction without residual deficits; J45.909 Unspecified asthma, uncomplicated; K21.9 Gastro-esophageal reflux disease without esophagitis; E78.00 Pure hypercholesterolemia, unspecified; Z87.442 Personal history of urinary calculi; Z98.890 Other specified postprocedural states; W22.8XXA Striking against or struck by other objects, initial encounter; Y93.89 Activity, other specified; Y92.89 Other specified places as the place of occurrence of the external cause; Y99.8 Other external cause status

== ENCOUNTER 2024-05-29 08:52 | Emergency (ER) | payer BC ==
[~2024-05-29] VITALS: Ht 172.7 cm; Wt 112.5 kg
[~2024-05-29 08:52] MED LIST changes: +CYMBALTA30 MG PO; +DOXYCYCLINE MO100 MG PO; +LIRAGLUTID0.6 MG/0.1 SQ; +PREGABALIN150 MG PO
[2024-05-29 09:04] VITALS: BP 119/75
[2024-05-29] MEDS ORDERED: TRIAMCINOLONE ACETONIDE 40 MG/ML VIAL IM ONE (09:20)
[2024-05-29] MEDS ORDERED: COLCHICINE 0.6 MG TAB PO ONE (09:25)
[2024-05-29] MEDS ORDERED: Acetaminophen/Oxycodone 5 MG/325 MG TABLET PO ONE (09:25)
[2024-05-29] MEDS ORDERED: LODOCO0.5 MG PO (09:34)
[2024-05-29] MEDS ORDERED: PERCOCET 5-3251 EACH PO (09:34)
== END 2024-05-29 09:39 | disposition home or self-care (01) ==
LOC: ED 08:52
DX: M10.9 Gout, unspecified (principal); E11.9 Type 2 diabetes mellitus without complications; J45.909 Unspecified asthma, uncomplicated; K21.9 Gastro-esophageal reflux disease without esophagitis; E78.00 Pure hypercholesterolemia, unspecified; F41.9 Anxiety disorder, unspecified; Z87.442 Personal history of urinary calculi; I10 Essential (primary) hypertension; Z86.73 Personal history of transient ischemic attack (TIA), and cerebral infarction without residual deficits; Z98.890 Other specified postprocedural states

== ENCOUNTER 2024-06-14 12:30 | Emergency (ER) | payer BC ==
[~2024-06-14] VITALS: Ht 172.7 cm; Wt 113.4 kg
[~2024-06-14 12:30] MED LIST changes: +LODOCO0.5 MG PO
[2024-06-14 12:45] VITALS: BP 122/86
[2024-06-14] MEDS ORDERED: methylPREDNISolone sod succ 125 MG VIAL IM ONE (13:05)
[2024-06-14] MEDS ORDERED: Acetaminophen/Hydrocodone 5 MG/325 MG TABLET PO ONE (13:05)
[2024-06-14] MEDS ORDERED: HYDROCODONE-AC1 EAC1 PO (14:42)
== END 2024-06-14 14:47 | disposition home or self-care (01) ==
LOC: ED 12:30
DX: S16.1XXA Strain of muscle, fascia and tendon at neck level, initial encounter (principal); M50.20 Other cervical disc displacement, unspecified cervical region; I10 Essential (primary) hypertension; E11.9 Type 2 diabetes mellitus without complications; I25.10 Atherosclerotic heart disease of native coronary artery without angina pectoris; J45.909 Unspecified asthma, uncomplicated; K21.9 Gastro-esophageal reflux disease without esophagitis; F41.9 Anxiety disorder, unspecified; E78.00 Pure hypercholesterolemia, unspecified; R51.9 Headache, unspecified; M25.512 Pain in left shoulder; M10.9 Gout, unspecified; Z87.442 Personal history of urinary calculi; Z86.718 Personal history of other venous thrombosis and embolism; Z98.890 Other specified postprocedural states; Z86.73 Personal history of transient ischemic attack (TIA), and cerebral infarction without residual deficits; W18.09XA Striking against other object with subsequent fall, initial encounter; Y93.89 Activity, other specified; Y92.009 Unspecified place in unspecified non-institutional (private) residence as the place of occurrence of the external cause; Y99.8 Other external cause status

== ENCOUNTER 2024-08-01 15:01 | Emergency (ER) | payer BC ==
[~2024-08-01] VITALS: Wt 113.4 kg
[2024-08-01 15:14] VITALS: BP 168/77
== END 2024-08-01 17:33 | disposition home or self-care (01) ==
LOC: ED 15:01
DX: S09.8XXA Other specified injuries of head, initial encounter (principal); K21.9 Gastro-esophageal reflux disease without esophagitis; I25.10 Atherosclerotic heart disease of native coronary artery without angina pectoris; M10.9 Gout, unspecified; E78.00 Pure hypercholesterolemia, unspecified; E11.9 Type 2 diabetes mellitus without complications; I10 Essential (primary) hypertension; E78.5 Hyperlipidemia, unspecified; J45.909 Unspecified asthma, uncomplicated; Z86.73 Personal history of transient ischemic attack (TIA), and cerebral infarction without residual deficits; Z86.718 Personal history of other venous thrombosis and embolism; Z87.442 Personal history of urinary calculi; Z98.890 Other specified postprocedural states; W01.190A Fall on same level from slipping, tripping and stumbling with subsequent striking against furniture, initial encounter; Y93.89 Activity, other specified; Y92.003 Bedroom of unspecified non-institutional (private) residence as the place of occurrence of the external cause; Y99.8 Other external cause status

== ENCOUNTER 2024-08-11 08:08 | Emergency (ER) | payer BC ==
[~2024-08-11] VITALS: Ht 172.7 cm; Wt 115.7 kg
[2024-08-11 08:21] VITALS: BP 136/80
[2024-08-11] MEDS ORDERED: Acetaminophen/Oxycodone 5 MG/325 MG TABLET PO ONE (08:30)
[2024-08-11] MEDS ORDERED: Acetaminophen/Oxycodone 5 MG/325 MG TABLET ONE (09:05)
[2024-08-11] MEDS ORDERED: PERCOCET 5-3251 EACH PO (09:38)
== END 2024-08-11 09:43 | disposition home or self-care (01) ==
LOC: ED 08:08
DX: M10.062 Idiopathic gout, left knee (principal); M79.605 Pain in left leg; K21.9 Gastro-esophageal reflux disease without esophagitis; E11.9 Type 2 diabetes mellitus without complications; I10 Essential (primary) hypertension; E78.5 Hyperlipidemia, unspecified; X58.XXXA Exposure to other specified factors, initial encounter; Y93.89 Activity, other specified; Y92.89 Other specified places as the place of occurrence of the external cause; Y99.8 Other external cause status

== ENCOUNTER 2024-09-06 07:57 | Emergency (ER) | payer BC ==
[~2024-09-06] VITALS: Wt 116.6 kg
[2024-09-06 08:07] VITALS: BP 127/76
[2024-09-06] MEDS ORDERED: Dexamethasone Sodium Phospha 20 MG/5 ML VIAL IV ONE (08:20)
[2024-09-06] MEDS ORDERED: Ondansetron Hydrochloride 4 MG/2 ML VIAL IV ONE (08:20)
[2024-09-06] MEDS ORDERED: METFORMIN HYD1000 MG PO (08:21)
[2024-09-06] MEDS ORDERED: CYCLOBENZAPRINE10 MG PO (08:21)
[2024-09-06] MEDS ORDERED: 'CLONIDINE0.1 MG PO (08:21)
[2024-09-06] MEDS ORDERED: ASPIRIN ADULT L81 M1 PO (08:22)
[2024-09-06 08:30] LABS: BASO # 0.1 10*3/uL (0.0-0.1); BASO % 0.6 % (0.0-1.0); EOS # 0.1 10*3/uL (0.0-0.4); EOS % 1.7 % (1.0-4.0); HEMATOCRIT 40.8 % (42.0-52.0); MEAN CELL VOLUME 91.3 fl (80.0-94.0); MEAN CORPUSCULAR HGB 30.6 pg (27.0-31.0); MEAN CORPUSCULAR HGB CONC 33.6 g/dl (33.0-37.0); MEAN PLATELET VOLUME 10.9 fl (9.6-12.3); MONO # 0.6 10*3/uL (0.1-1.0); MONO % 7.8 % (3.0-9.0); NEUT # 4.3 10*3/uL (2.3-7.9); NEUT % 52.2 % (47.0-73.0); PLATELET COUNT AUTOMATED 169 10*3/uL (130-400); RED BLOOD COUNT 4.47 10*6/uL (4.50-5.90); RED CELL DISTRI WIDTH 12.6 % (0-14.5); WHITE BLOOD COUNT 8.2 10*3/uL (4.8-10.8)
[2024-09-06 08:52] LABS: BUN 15 mg/dl (9-23); CHLORIDE 104 mmol/L (98-107); POTASSIUM 3.4 mmol/L (3.4-5.1)
[2024-09-06] MEDS ORDERED: Codeine Phosphate/Guaifenesi 10 ML UDC PO ONE (08:55)
[2024-09-06] MEDS ORDERED: PREDNISONE20 M1 PO (10:13)
== END 2024-09-06 10:49 | disposition home or self-care (01) ==
LOC: ED 07:57
PROVIDERS: Internal Medicine
DX: D86.9 Sarcoidosis, unspecified (principal); Z20.822 Contact with and (suspected) exposure to COVID-19; Z79.899 Other long term (current) drug therapy; Z79.82 Long term (current) use of aspirin; Z98.890 Other specified postprocedural states; Z95.5 Presence of coronary angioplasty implant and graft

== ENCOUNTER 2024-12-10 16:36 | Emergency (ER) | payer BC ==
[~2024-12-10 16:36] MED LIST changes: +ASPIRIN ADULT L81 M1 PO
== END 2024-12-10 18:03 | disposition left against medical advice (07) ==
LOC: ED 16:36
DX: S59.902A Unspecified injury of left elbow, initial encounter (principal); Z53.21 Procedure and treatment not carried out due to patient leaving prior to being seen by health care provider; X58.XXXA Exposure to other specified factors, initial encounter; Y93.89 Activity, other specified; Y92.89 Other specified places as the place of occurrence of the external cause; Y99.8 Other external cause status

== ENCOUNTER 2024-12-12 04:14 | Emergency (ER) | payer BC ==
[~2024-12-12] VITALS: Ht 172.7 cm; Wt 108.5 kg
[2024-12-12 04:30] VITALS: BP 133/29
[2024-12-12] MEDS ORDERED: MORPHINE Sulfate 2 MG/ML SYR IV ONE (04:30)
[2024-12-12] MEDS ORDERED: Ondansetron Hydrochloride 4 MG/2 ML VIAL IV ONE (04:30)
[2024-12-12] MEDS ORDERED: methylPREDNISolone sod succ 125 MG VIAL IV ONE (04:30)
[2024-12-12] MEDS ORDERED: SODIUM CHLORIDE 0.9% 500 ML IV ONE (04:30)
[2024-12-12] MEDS ORDERED: Albuterol Sulf/Ipratropium 3 ML VIAL NEB ONE (04:30)
[2024-12-12] MEDS ORDERED: diphenhydrAMINE hydrochloride 50 MG/ML VIAL IV ONE (05:00)
[2024-12-12] MEDS ORDERED: Prochlorperazine Edisylate 10 MG/2 ML VIAL IV ONE (05:00)
[2024-12-12 05:25] LABS: ALKALINE PHOSPHATASE 74 U/L (46-116); BUN 24 mg/dl (9-23); CHLORIDE 97 mmol/L (98-107); CPK 229 U/L (34-171); POTASSIUM 4.4 mmol/L (3.4-5.1); SGPT/ALT 34 U/L (5-49); TOTAL PROTEIN 7.4 gm/dL (6.0-8.0)
[2024-12-12] MEDS ORDERED: cefTRIAXone Sodium 1 GM/10 ML SYR IV ONE (06:05)
[2024-12-12 06:25] LABS: BASO % 0.2 % (0.0-1.0); HEMATOCRIT 40.6 % (42.0-52.0); MEAN CELL VOLUME 89.8 fl (80.0-94.0); MEAN CORPUSCULAR HGB 30.5 pg (27.0-31.0); MEAN PLATELET VOLUME 12.4 fl (9.6-12.3); MONO # 0.4 10*3/uL (0.1-1.0); MONO % 3.7 % (3.0-9.0); NEUT # 8.7 10*3/uL (2.3-7.9); NEUT % 81.9 % (47.0-73.0); PLATELET COUNT AUTOMATED 195 10*3/uL (130-400); RED BLOOD COUNT 4.52 10*6/uL (4.50-5.90); RED CELL DISTRI WIDTH 11.9 % (0-14.5); WHITE BLOOD COUNT 10.6 10*3/uL (4.8-10.8)
[2024-12-12] MEDS ORDERED: HYCODAN 5 MG-1473 ML PO (06:46)
[2024-12-12] MEDS ORDERED: PREDNISONE20 M1 PO (06:46)
[2024-12-12] MEDS ORDERED: COMPAZINE10 M1 PO (06:46)
[2024-12-12] MEDS ORDERED: ALBUTEROL 8 GM INHALER INH ONE (06:50)
== END 2024-12-12 07:14 | disposition home or self-care (01) ==
LOC: ED 04:14
PROVIDERS: Emergency Medicine
DX: D86.0 Sarcoidosis of lung (principal); J40 Bronchitis, not specified as acute or chronic; R05.9 Cough, unspecified; R11.10 Vomiting, unspecified; M25.522 Pain in left elbow; Z79.899 Other long term (current) drug therapy; Z79.82 Long term (current) use of aspirin; Z98.890 Other specified postprocedural states; Z95.5 Presence of coronary angioplasty implant and graft

== ENCOUNTER 2024-12-27 15:23 | Emergency (ER) | payer BC ==
[~2024-12-27] VITALS: Ht 172.7 cm; Wt 111.1 kg
[~2024-12-27 15:23] MED LIST changes: +COMPAZINE10 M1 PO; +HYCODAN 5 MG-1473 ML PO
[2024-12-27 15:34] VITALS: BP 140/92
[2024-12-27] MEDS ORDERED: MEDROL DOSEPAK4 MG PO (19:19)
== END 2024-12-27 19:44 | disposition home or self-care (01) ==
LOC: ED 15:23
DX: M70.22 Olecranon bursitis, left elbow (principal); E11.9 Type 2 diabetes mellitus without complications; I25.10 Atherosclerotic heart disease of native coronary artery without angina pectoris; F32.A Depression, unspecified; E78.5 Hyperlipidemia, unspecified; Z79.899 Other long term (current) drug therapy; Z79.84 Long term (current) use of oral hypoglycemic drugs; Z79.82 Long term (current) use of aspirin; Z98.890 Other specified postprocedural states; Z95.5 Presence of coronary angioplasty implant and graft; Y93.89 Activity, other specified

== ENCOUNTER 2025-02-01 23:09 | Emergency (ER) | payer BC ==
[~2025-02-01] VITALS: Ht 172.7 cm; Wt 108.9 kg
[2025-02-02 00:36] LABS: BUN 11 mg/dl (9-23)
[2025-02-02 00:50] LABS: BASO # 0.0 10*3/uL (0.0-0.1); BASO % 0.5 % (0.0-1.0); EOS # 0.2 10*3/uL (0.0-0.4); EOS % 3.0 % (1.0-4.0); MEAN CELL VOLUME 89.7 fl (80.0-94.0); MEAN CORPUSCULAR HGB 30.3 pg (27.0-31.0); MEAN PLATELET VOLUME 11.8 fl (9.6-12.3); MONO # 0.6 10*3/uL (0.1-1.0); MONO % 9.7 % (3.0-9.0); NEUT # 3.8 10*3/uL (2.3-7.9); NEUT % 64.0 % (47.0-73.0); NUCLEATED RED BLOOD CELL 0.0 % (0.0-0.0); NUCLEATED RED BLOOD CELL 0.0 10*3/uL (0.0-0.0); PLATELET COUNT AUTOMATED 148 10*3/uL (130-400); RED CELL DISTRI WIDTH 12.5 % (0-14.5)
[2025-02-02] MEDS ORDERED: Acetaminophen/Oxycodone 5 MG/325 MG TABLET PO ONE (01:00)
[2025-02-02 01:08] VITALS: BP 136/85
[2025-02-02] MEDS ORDERED: PREDNISONE5 MG PO (04:49)
== END 2025-02-02 04:55 | disposition home or self-care (01) ==
LOC: ED 23:09
PROVIDERS: Emergency Medicine
DX: M10.032 Idiopathic gout, left wrist (principal); Z79.899 Other long term (current) drug therapy; Z79.82 Long term (current) use of aspirin; Z95.5 Presence of coronary angioplasty implant and graft; Z98.890 Other specified postprocedural states

== ENCOUNTER 2025-02-21 13:42 | Emergency (ER) | payer BC ==
[~2025-02-21] VITALS: Ht 172.7 cm; Wt 104.3 kg
[~2025-02-21 13:42] MED LIST changes: +PREDNISONE5 MG PO
[2025-02-21 14:01] VITALS: BP 133/80
== END 2025-02-21 17:05 | disposition left against medical advice (07) ==
LOC: ED 13:42
DX: M79.642 Pain in left hand (principal); R22.32 Localized swelling, mass and lump, left upper limb; Z53.21 Procedure and treatment not carried out due to patient leaving prior to being seen by health care provider

== ENCOUNTER 2025-03-25 09:18 | Emergency (ER) | payer MEDICAID ==
[~2025-03-25] VITALS: Wt 108.9 kg
[2025-03-25 09:36] VITALS: BP 118/74
[2025-03-25] MEDS ORDERED: Ondansetron Hydrochloride 4 MG/2 ML VIAL IV ONE (09:50)
[2025-03-25] MEDS ORDERED: SODIUM CHLORIDE 0.9% 500 ML IV ONE (09:50)
[2025-03-25] MEDS ORDERED: Lidocaine Hydrochloride 1% 2 ML VIAL SC ONE (12:10)
[2025-03-25] MEDS ORDERED: Lidocaine Hydrochloride 5 ML AMP SC ONE (12:15)
[2025-03-25] MEDS ORDERED: Ondansetron4 MG PO (13:03)
[2025-03-25] MEDS ORDERED: PERCOCET 5-3251 EACH PO (13:03)
[2025-03-25] MEDS ORDERED: ERYTHROMYCIN 1 GM TUBE OPH ONE (13:30)
== END 2025-03-25 13:43 | disposition home or self-care (01) ==
LOC: ED 09:18
DX: S01.112A Laceration without foreign body of left eyelid and periocular area, initial encounter (principal); R68.84 Jaw pain; M25.512 Pain in left shoulder; I48.91 Unspecified atrial fibrillation; Z79.899 Other long term (current) drug therapy; Z79.82 Long term (current) use of aspirin; Z98.890 Other specified postprocedural states; Z95.5 Presence of coronary angioplasty implant and graft; Y04.2XXA Assault by strike against or bumped into by another person, initial encounter; Y93.89 Activity, other specified; Y92.89 Other specified places as the place of occurrence of the external cause; Y99.8 Other external cause status

== ENCOUNTER 2025-03-28 16:28 | Emergency (ER) | payer OTHER ==
[~2025-03-28] VITALS: Ht 172.7 cm; Wt 113.4 kg
[~2025-03-28 16:28] MED LIST changes: +Ondansetron4 MG PO
[2025-03-28] MEDS ORDERED: SODIUM CHLORIDE 0.9% 1,000 ML IV ONE (16:30)
[2025-03-28] MEDS ORDERED: diphenhydrAMINE hydrochloride 50 MG/ML VIAL IV ONE (16:30)
[2025-03-28] MEDS ORDERED: Metoclopramide Hydrochloride 10 MG/2 ML VIAL IV ONE (16:30)
[2025-03-28 16:35] VITALS: BP 114/71
[2025-03-28 16:55] LABS: BASO # 0.0 10*3/uL (0.0-0.1); BASO % 0.5 % (0.0-1.0); EOS # 0.1 10*3/uL (0.0-0.4); EOS % 1.0 % (1.0-4.0); MEAN CELL VOLUME 90.2 fl (80.0-94.0); MEAN CORPUSCULAR HGB 30.3 pg (27.0-31.0); MEAN PLATELET VOLUME 11.1 fl (9.6-12.3); MONO # 0.7 10*3/uL (0.1-1.0); MONO % 8.3 % (3.0-9.0); NEUT # 4.8 10*3/uL (2.3-7.9); NEUT % 60.7 % (47.0-73.0); NUCLEATED RED BLOOD CELL 0.0 % (0.0-0.0); NUCLEATED RED BLOOD CELL 0.0 10*3/uL (0.0-0.0); PLATELET COUNT AUTOMATED 199 10*3/uL (130-400); RED CELL DISTRI WIDTH 12.7 % (0-14.5)
[2025-03-28 17:21] LABS: BUN 12 mg/dl (9-23)
[2025-03-28] MEDS ORDERED: IBU800 M2 PO (17:27)
[2025-03-28] MEDS ORDERED: REGLAN10 M1 PO (17:27)
== END 2025-03-28 17:46 | disposition home or self-care (01) ==
LOC: ED 16:28
PROVIDERS: Emergency Medicine
DX: R51.9 Headache, unspecified (principal); Z79.899 Other long term (current) drug therapy; Z98.890 Other specified postprocedural states; Z95.5 Presence of coronary angioplasty implant and graft

== ENCOUNTER 2025-06-30 21:07 | Emergency (ER) | payer MEDICAID ==
[~2025-06-30] VITALS: Ht 172.7 cm; Wt 77.1 kg
[~2025-06-30 21:07] MED LIST changes: +IBU800 M2 PO; +REGLAN10 M1 PO
[2025-06-30 21:19] VITALS: BP 145/84
[2025-06-30] MEDS ORDERED: Tdap Vaccine 0.5 ML SYR (Adult Vaccine) IM ONE (21:20)
[2025-06-30] MEDS ORDERED: Ondansetron Hydrochloride 4 MG TAB PO ONE (21:35)
[2025-06-30] MEDS ORDERED: Bacitracin Zinc 14 GM TUBE T ONE ×2 (22:05→22:10)
[2025-07-04] MEDS ORDERED: AMOX-CLAV 875-1 EACH PO (13:45)
== END 2025-06-30 22:19 | disposition home or self-care (01) ==
LOC: ED 21:07
DX: S61.210A Laceration without foreign body of right index finger without damage to nail, initial encounter (principal); E11.9 Type 2 diabetes mellitus without complications; J45.909 Unspecified asthma, uncomplicated; K21.9 Gastro-esophageal reflux disease without esophagitis; M10.9 Gout, unspecified; Z98.890 Other specified postprocedural states; W26.0XXA Contact with knife, initial encounter; Y93.89 Activity, other specified; Y92.000 Kitchen of unspecified non-institutional (private) residence as the place of occurrence of the external cause; Y99.8 Other external cause status